=== PATIENT | female | born 1940 | race Caucasian/White ===

== ENCOUNTER 2017-03-04 00:50 | Emergency (ER) | payer OTHER ==
[2017-03-04 01:01] VITALS: BMI 23.7
--- NOTE | 2017-03-04 01:09 | DR.GENAD ---
HPI - PCP Primary Care Physician: HAZEL - Complaint/Symptoms Chief Complaint:: FEELS LIKE HEART IS RUNNING FAST Self Treatment fo Chief Complaint: NONE - Nurses notes reviewed Nurses Notes Review: Yes - Source History Provided: Patient - Mode of Arrival Mode of Arrival: Ambulatory - Timing Onset of Chief Complaint: 03/04/17 Came on: Suddenly - Duration Duration: Constant How lon Duration: Hours - Location Location: chest - Severity Severity: Moderate - Modifying Factors Worsens:: unknown - Associated Signs and Symptoms Associated Signs and Symptoms: tachycardia PMH - PMH Past Medical History: Yes Past Medical History: Arthritis, Hypertension Past Surgical History: Yes Surgical History: Appendectomy, Cholecystectomy, Hysterectomy Past Surgical History Comment: KNEE LEFT, HERNIA REPAIR, ADHESION REMOVAL, KIDNEY - Family History History of Family Medical Conditions: Yes - Social History Does patient currently use any type of tobacco product: No Have you used tobacco products in the last 12 months: No Type of Tobacco Use: None Does any household member use tobacco: No Alcohol Use: None Do you use any recreational Drugs:: No Lives With: Family Lives Where: Home - infectious screening In the last 2 months have you had wt loss of >10#?: NO Have you had fever, night sweats or hemotysis?: No Have you traveled outside the country in the last 6 months?: No Isolation: Standard ROS - Review of Systems Constitutional: No Symptoms Reported Eyes: No Symptoms Reported ENTM: No Symptoms Reported Respiratoy: No Symptoms Reported Cardiovascular: Palpitations Gastrointestinal/Abdominal: No Symptoms Reported Genitourinary: No Symptoms Reported Neurological: No Symptoms Reported Musculoskeletal: No Symptoms Reported Integumentary: No Symptoms Reported Hematologic/Lymphatic: No Symptoms Reported Endocrine: No Symptoms Reported Psychiatric: No Symptoms Reported PE - Vital Signs Vitals: Temperature 97.4 F Pulse Rate [Right Brachial] 82 Pulse Rate 110 Respiratory Rate 16 Blood Pressure [Right Arm] 165/74 Blood Pressure 189/69 O2 Sat by Pulse Oximetry 98 - General Limitations: No Limitations General Appearance: Alert, In No Apparent Distress - Head Head Exam: Normal Inspection - Eyes Eye exam: Normal Appearance, EOMI. negative: Scleral Icterus, Conjunctival Injection - ENT ENT Exam: Normal Exam, Normal Oropharynx External Ear Exam: Normal External Inspection Nose Exam: Normal Nose Exam - Neck Neck Exam: Normal Inspection, Full ROM, Trachea Midline - Chest Chest Inspection: Normal Inspection - Respiratory Respiratory Exam: Normal Lung Sounds Bilat. negative: Accessory Muscle Use, Respiratory Distress Respiratory Exam: Bilateral Clear to Auscultation - Cardiovascular Cardiovascular Exam: Tachycardia - Abdominal Exam Abdominal Exam: Normal Inspection, Normal Bowel Sounds, Soft. negative: Distention, Tenderness - Extremities Extremities Exam: Normal Inspection, Full ROM - Back Back Exam: Normal Inspection - Neurologic Neurological Exam: Alert, Oriented X3, CN II-XII Intact - Psychiatric Psychiatric Exam: Anxious - Skin Skin Exam: Intact, Normal Color Course - Treatment Treatment: 0220: heart rate 80s. BP 170s, will give lopressor and IVF for Na of 147 ROR - Labs Reviewed Result Diagrams: 03/04/17 01:40 03/04/17 01:40 Laboratory: WBC 10.4 X10^3/uL (3.6-10.0) H 03/04/17 01:40 RBC 4.13 X10^6/uL (3.5-5.4) 03/04/17 01:40 Hgb 11.9 g/dL (12.0-16.0) L 03/04/17 01:40 Hct 35.8 % (36.0-47.0) L 03/04/17 01:40 MCV 86.8 fL (80.0-100.0) 03/04/17 01:40 MCH 28.9 pg (27.0-34.0) 03/04/17 01:40 MCHC 33.3 g/dL (33.0-35.0) 03/04/17 01:40 RDW 14.5 % (11.6-16.5) 03/04/17 01:40 Plt Count 254 X10^3/uL (150.0-450.0) 03/04/17 01:40 MPV 8.2 fL (7.4-11.0) 03/04/17 01:40 Neut % 65.4 % (42.0-75.0) 03/04/17 01:40 Lymph % 24.8 % (21.0-51.0) 03/04/17 01:40 [place] % 7.7 % (0.0-13.0) 03/04/17 01:40 Eos % 1.3 % (0.9-2.9) 03/04/17 01:40 Baso % 0.8 % (0.2-1.0) 03/04/17 01:40 Neut # 6.8 x10^3/uL (2.2-4.8) H 03/04/17 01:40 Lymph # 2.6 X10^3/uL (1.3-2.9) 03/04/17 01:40 [place] # 0.8 x10^3/uL (0.3-0.8) 03/04/17 01:40 Eos # 0.1 x10^3/uL (0.0-0.2) 03/04/17 01:40 Baso # 0.1 X10^3/uL (0.0-0.1) 03/04/17 01:40 Absolute Nucleated RBC 0.0 /100WBC 03/04/17 01:40 INR Target Range - 03/04/17 01:40 INR 0.99 (0.8-1.3) 03/04/17 01:40 PTT 26.9 SECONDS (22.9-36.5) 03/04/17 01:40 PTT Comment - 03/04/17 01:40 Sodium 147 mmol/L (136-145) H 03/04/17 01:40 Corrected Sodium TNP 03/04/17 01:40 Potassium 3.5 mmol/L (3.5-5.1) 03/04/17 01:40 Chloride 109 mmol/L (98-107) H 03/04/17 01:40 Carbon Dioxide 24.2 mmol/L (21-32) 03/04/17 01:40 BUN 30 mg/dL (7-18) H 03/04/17 01:40 Creatinine 1.63 mg/dL (0.55-1.02) H 03/04/17 01:40 Est GFR (MDRD) Af Amer 40 (>60) L 03/04/17 01:40 Est GFR (MDRD) Non-Af 33 (>60) L 03/04/17 01:40 Glucose 98 mg/dL (65-99) 03/04/17 01:40 Calcium 9.1 mg/dL (8.5-10.1) 03/04/17 01:40 Corrected Calcium TNP 03/04/17 01:40 Magnesium 1.9 mg/dL (1.7-2.9) 03/04/17 01:40 Total Bilirubin 0.30 mg/dL (0.2-1.0) 03/04/17 01:40 AST 19 Units/L (15-37) 03/04/17 01:40 ALT 22 Units/L (12-78) 03/04/17 01:40 Alkaline Phosphatase 57 Units/L (46-116) 03/04/17 01:40 Creatine Kinase 193 Units/L (26-192) H 03/04/17 01:40 CK-MB (CK-2) 3.6 ng/mL (0-4.0) 03/04/17 01:40 CK/CKMB % Calc 1.9 % (<4) 03/04/17 01:40 Troponin I < 0.02 ng/mL (0-1.5) 03/04/17 01:40 Total Protein 7.5 g/dL (6.4-8.2) 03/04/17 01:40 Albumin 3.9 g/dL (3.4-5.0) 03/04/17 01:40 Globulin 3.6 g/dL (2.5-4.5) 03/04/17 01:40 Albumin/Globulin Ratio 1.1 Ratio (1.1-2.1) 03/04/17 01:40 - EKG Rate: 97 [place]: LAD Rhythm: NSR Block: None Hypertrophy: None ST: Normal - Diagnosis Discharge Problem: Heart palpitations, Hypernatremia - Discharge Plan Condition: Stable - Follow ups/Referrals Follow ups/Referrals: Renny Tinajero [Primary Care Provider] - 3 days - Instructions
[2017-03-04] MEDS ORDERED: NS 500 ML IV 500 ML IV ONE ×4 (01:26→02:22)
[2017-03-04 01:45] LABS: BASOPHILS # (AUTO) 0.1 X10^3/uL (0.0-0.1); BASOPHILS % (AUTO) 0.8 % (0.2-1.0); EOSINOPHILS # (AUTO) 0.1 x10^3/uL (0.0-0.2); EOSINOPHILS % (AUTO) 1.3 % (0.9-2.9); HEMATOCRIT 35.8 % (36.0-47.0); HEMOGLOBIN 11.9 g/dL (12.0-16.0); LYMPHOCYTES # (AUTO) 2.6 X10^3/uL (1.3-2.9); LYMPHOCYTES % (AUTO) 24.8 % (21.0-51.0); MEAN CORPUSCULAR HEMOGLOBIN 28.9 pg (27.0-34.0); MEAN CORPUSCULAR HGB CONC 33.3 g/dL (33.0-35.0); MEAN CORPUSCULAR VOLUME 86.8 fL (80.0-100.0); MEAN PLATELET VOLUME 8.2 fL (7.4-11.0); MONOCYTES # (AUTO) 0.8 x10^3/uL (0.3-0.8); MONOCYTES % (AUTO) 7.7 % (0.0-13.0); NEUTROPHILS # (AUTO) 6.8 x10^3/uL (2.2-4.8); NEUTROPHILS % (AUTO) 65.4 % (42.0-75.0); PLATELET COUNT 254 X10^3/uL (150.0-450.0); RED BLOOD COUNT 4.13 X10^6/uL (3.5-5.4); RED CELL DISTRIBUTION WIDTH 14.5 % (11.6-16.5); WHITE BLOOD COUNT 10.4 X10^3/uL (3.6-10.0)
[2017-03-04 02:04] LABS: BLOOD UREA NITROGEN 30 mg/dL (7-18); CALCIUM 9.1 mg/dL (8.5-10.1); CARBON DIOXIDE 24.2 mmol/L (21-32); CHLORIDE 109 mmol/L (98-107); CREATININE 1.63 mg/dL (0.55-1.02); GLUCOSE 98 mg/dL (65-99); SODIUM 147 mmol/L (136-145); TROPONIN I < 0.02 ng/mL (0-1.5); eGFR BLACK RACES 40 (>60); eGFR NON BLACK RACES 33 (>60)
[2017-03-04 02:10] LABS: ALANINE AMINOTRANSFERASE 22 Units/L (12-78); ALBUMIN 3.9 g/dL (3.4-5.0); ALKALINE PHOSPHATASE 57 Units/L (46-116); ASPARTATE AMINO TRANSFERASE 19 Units/L (15-37); CKMB % 1.9 % (<4); CREATINE KINASE 193 Units/L (26-192); CREATINE KINASE MB 3.6 ng/mL (0-4.0); MAGNESIUM 1.9 mg/dL (1.7-2.9); TOTAL PROTEIN 7.5 g/dL (6.4-8.2)
[2017-03-04] MEDS ORDERED: LOPRESSOR INJ 5 MG AMP IVP ONE (02:19)
[2017-03-04] MEDS ORDERED: LOPRESSOR INJ 5 MG AMP ONE (02:22)
[2017-03-04 02:44] VITALS: BP 177/74
--- NOTE | 2017-03-04 02:47 | RAD ---
Chest, one view Indication: Palpitations, shortness of breath. Comparison: 09/01/2010 Findings: The cardiac silhouette is unremarkable. The lungs are mildly hypoinflated, but essentially clear, without focal infiltrates or large effusion. The bony thorax is unremarkable. Impression: No acute cardiopulmonary disease. Reported By:
== END 2017-03-04 03:10 | disposition home or self-care (01) ==
LOC: ER 00:50
DX: R00.2 Palpitations (principal); E87.0 Hyperosmolality and hypernatremia
CPT/HCPCS: 36415; 71010; 80053; 82550; 82553; 83735; 84484; 85025; 85610; 85730; 93005; 96365; 96374; 99283; A4222; J3490

== ENCOUNTER → 2017-03-24 | Outpatient (CLI) | payer OTHER ==
[2017-03-04 02:44] VITALS: BP 177/74
--- NOTE | 2017-03-24 12:01 | CT ---
HISTORY: Chronic renal disease Study: CT abdomen without contrast Comparison: None Technique: Axial non contrast images with coronal and sagittal reformats Findings: The lung bases are clear. The liver, spleen, adrenal glands, and pancreas are within normal limits t o the limitations of an unenhanced examination. The patient is status post cholecystectomy. 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 The right kidney is diminuti ve measuring only 4.1 centimeters in length. There is a tiny nonobstructing upper pole calculus pres ent. There is an 8.5 millimeter mass projecting off the lateral aspect of this diminutive kidney lik yassine a cyst however confirmation with sonography is recommended. The left kidney is unobstructed and without stones. No significant intraperitoneal or retroperitoneal lymphadenopathy is identified. Ed cific atherosclerotic change is present in a nondilated abdominal aorta. IMPRESSION: Diminutive right kidney demonstrating cortical thinning, tiny right upper pole calculi com and a 8.5 millimeter laterally projecting mass likely a cyst however this should be confirmed sonographically or with MRI Reported By:
== END ==
LOC: RAD 10:42
PROVIDERS: ATTEND Internal Medicine Nephrology
DX: N18.2 Chronic kidney disease, stage 2 (mild) (principal)
CPT/HCPCS: 74150

== ENCOUNTER → 2017-04-05 | Outpatient (CLI) | payer OTHER ==
--- NOTE | 2017-04-05 11:54 | MRI ---
MRI OF THE ABDOMEN WITHOUT IV CONTRAST Clinical indication: Right renal mass. Procedure: Multiplanar multi sequence MRI of the abdomen were obtained without the administration of intravenous contrast according to standard departmental protocol. Comparisons: None Findings: No significant iron or fat deposition in the liver or spleen. No significant ascites. Liver and spleen are normal in appearance. No focal lesions. Gallbladder absent. No gallstones. No d uctal dilatation. Pancreas demonstrates normal T1 signal. No pancreatic masses. Adrenal glands are n ormal. Right kidney is markedly atrophic and there is a tiny right cortical cyst measuring 9 mm on s eries 601, image 18. No hydronephrosis. Visualized bowel is unremarkable. No suspicious lymph nodes. There are at least 2 peritoneal nodules along the right flank with no T2 signal worse intrinsic T1 signal. These are best seen on series 701, image 16 measuring 8 mm and series 701 image 14 measuring 8 mm. Impression: 1. Atrophic right kidney with simple renal cyst. 2. At least 2 right peritoneal nodules that are nonspecific in the absence of known malignancy. Thes e are incompletely characterized in the absence of intravenous contrast. Reported By:
== END | disposition home or self-care (01) | DRG 684 ==
LOC: RAD 08:22
PROVIDERS: ATTEND Internal Medicine Nephrology
DX: N18.2 Chronic kidney disease, stage 2 (mild) (principal); N26.1 Atrophy of kidney (terminal); N28.1 Cyst of kidney, acquired
CPT/HCPCS: 74181

== ENCOUNTER → 2017-04-06 | Outpatient (CLI) | payer OTHER | LOC: RAD 14:55 | PROVIDERS: ATTEND Physician Assistant | DX: R53.83 Other fatigue (principal); R06.09 Other forms of dyspnea | CPT/HCPCS: 93306 ==

== ENCOUNTER → 2017-04-18 | Outpatient (CLI) | payer OTHER ==
[~2017-04-18] MED LIST: LEXISCAN IV ONE
== END ==
LOC: RAD 08:07
PROVIDERS: ATTEND Physician Assistant
DX: R53.83 Other fatigue (principal); R07.89 Other chest pain; R42 Dizziness and giddiness; R51 Headache
CPT/HCPCS: 78452; 93017; A4222; A9502; J2785

== ENCOUNTER 2019-06-30 12:12 | Observation (INO) ==
[2019-06-30] MEDS ORDERED: DEPO-Medrol 40 MG VIAL IM ONE ×2 (12:50→13:00)
--- NOTE | 2019-06-30 12:55 | DR.GENAD ---
HPI - PCP Primary Care Physician: javi - HPI Comment HPI Comment: Pain in the rt lateral ankle acutely worsened this morning and pain seems to be going into her calf and upper thigh to the hip; no acute injury; no prior h/o same; she's had gout in the lt ankle, but this pain is different; no fever or chills, but she has been "achy" for the past few days but denies cp/sob/abd pain/n/v/d; she took a tramadol about an hour ago without much relief. - Complaint/Symptoms Chief Complaint:: pt stated she started having body aches earlier this week, but this morning her right lower leg has been hurting more than ever. pain from her ankle to hip on the right side. - Source History Provided: Patient - Mode of Arrival Mode of Arrival: Wheelchair - Timing Onset of Chief Complaint: 06/24/19 PMH - PMH Past Medical History: Yes Past Medical History: Arthritis, Hypertension Past Medical History Comment: gout Past Surgical History: Yes Surgical History: Appendectomy, Cholecystectomy, Hysterectomy - Family History History of Family Medical Conditions: No - Social History Does patient currently use any type of tobacco product: No Have you used tobacco products in the last 12 months: No Does any household member use tobacco: No Alcohol Use: None Do you use any recreational Drugs:: No Lives With: Family Lives Where: Home - infectious screening In the last 2 months have you had wt loss of >10#?: NO Have you had fever, night sweats or hemotysis?: No Have you traveled outside the country in the last 6 months?: No Isolation: Standard ROS - Review of Systems Constitutional: No Symptoms Reported Eyes: No Symptoms Reported ENTM: No Symptoms Reported Respiratoy: No Symptoms Reported Gastrointestinal/Abdominal: No Symptoms Reported Genitourinary: No Symptoms Reported Neurological: No Symptoms Reported Musculoskeletal: See HPI Integumentary: No Symptoms Reported Hematologic/Lymphatic: No Symptoms Reported Endocrine: No Symptoms Reported Psychiatric: No Symptoms Reported PE - General Limitations: No Limitations General Appearance: Alert (appears to be in pain) - Head Head Exam: Normal Inspection, Atraumatic - Eyes Eye exam: Normal Appearance, PERRL - ENT ENT Exam: Normal Exam - Neck Neck Exam: Normal Inspection, Full ROM - Chest Chest Inspection: Normal Inspection, Symmetric Chest Wall Rise - Respiratory Respiratory Exam: Normal Lung Sounds Bilat Respiratory Exam: Bilateral Clear to Auscultation - Cardiovascular Cardiovascular Exam: Regular Rate, Normal Rhythm - Abdominal Exam Abdominal Exam: Normal Inspection, Normal Bowel Sounds, Soft - Extremities Extremities Exam: Tenderness (rt lateral ankle, rt lat malleolus tender, minimally red and swollen) - Neurologic Neurological Exam: Alert, Oriented X3, CN II-XII Intact - Psychiatric Psychiatric Exam: Normal Affect, Normal Mood - Skin Skin Exam: Warm - Vital Signs Vitals: Temperature 98.6 F Pulse Rate 73 Respiratory Rate 16 Blood Pressure [Right Arm] 177/74 Blood Pressure 112/66 O2 Sat by Pulse Oximetry 98 Course - Reevaluation 1st: Improved ROR - Labs Reviewed Result Diagrams: 06/30/19 13:00 06/30/19 13:00 - Labs Reviewed Laboratory: WBC 15.0 X10^3/uL (3.6-10.0) H 06/30/19 13:00 RBC 3.90 X10^6/uL (3.5-5.4) 06/30/19 13:00 Hgb 11.6 g/dL (12.0-16.0) L 06/30/19 13:00 Hct 35.2 % (36.0-47.0) L 06/30/19 13:00 MCV 90.2 fL (80.0-100.0) 06/30/19 13:00 MCH 29.8 pg (27.0-34.0) 06/30/19 13:00 MCHC 33.1 g/dL (33.0-35.0) 06/30/19 13:00 RDW 13.3 % (11.6-16.5) 06/30/19 13:00 Plt Count 200 X10^3/uL (150.0-450.0) 06/30/19 13:00 MPV 8.5 fL (7.4-11.0) 06/30/19 13:00 Neut % (Auto) 75.1 % (42.0-75.0) H 06/30/19 13:00 Lymph % (Auto) 16.5 % (21.0-51.0) L 06/30/19 13:00 [place] % (Auto) 7.3 % (0.0-13.0) 06/30/19 13:00 Eos % (Auto) 0.3 % (0.9-2.9) L 06/30/19 13:00 Baso % (Auto) 0.8 % (0.2-1.0) 06/30/19 13:00 Neut # (Auto) 11.3 x10^3/uL (2.2-4.8) H 06/30/19 13:00 Lymph # (Auto) 2.5 X10^3/uL (1.3-2.9) 06/30/19 13:00 [place] # (Auto) 1.1 x10^3/uL (0.3-0.8) H 06/30/19 13:00 Eos # (Auto) 0.1 x10^3/uL (0.0-0.2) 06/30/19 13:00 Baso # (Auto) 0.1 X10^3/uL (0.0-0.1) 06/30/19 13:00 Absolute Nucleated RBC 0.0 /100WBC 06/30/19 13:00 Sodium 144 mmol/L (136-145) 06/30/19 13:00 Corrected Sodium 144 mmol/L (136-145) 06/30/19 13:00 Potassium 3.6 mmol/L (3.5-5.1) 06/30/19 13:00 Chloride 104 mmol/L (98-107) 06/30/19 13:00 Carbon Dioxide 29.5 mmol/L (21-32) 06/30/19 13:00 BUN 32 mg/dL (7-18) H 06/30/19 13:00 Creatinine 1.70 mg/dL (0.55-1.02) H 06/30/19 13:00 Est GFR (MDRD) Af Amer 37 (>60) L 06/30/19 13:00 Est GFR (MDRD) Non-Af 31 (>60) L 06/30/19 13:00 Glucose 118 mg/dL (65-99) H 06/30/19 13:00 Uric Acid 12.1 mg/dL (2.6-6.0) H 06/30/19 13:00 Calcium 9.1 mg/dL (8.5-10.1) 06/30/19 13:00 Corrected Calcium TNP 06/30/19 13:00 Total Bilirubin 0.50 mg/dL (0.2-1.0) 06/30/19 13:00 AST 19 Units/L (15-37) 06/30/19 13:00 ALT 12 Units/L (12-78) 06/30/19 13:00 Alkaline Phosphatase 62 Units/L (46-116) 06/30/19 13:00 Total Protein 7.0 g/dL (6.4-8.2) 06/30/19 13:00 Albumin 3.7 g/dL (3.4-5.0) 06/30/19 13:00 Globulin 3.3 g/dL (2.5-4.5) 06/30/19 13:00 Albumin/Globulin Ratio 1.1 Ratio (1.1-2.1) 06/30/19 13:00 Opioid - Opioid Risk Tool Total: 0 Total Score Risk Category: Low Risk - Diagnosis Discharge Problem: Leukocytosis - Discharge Plan Disposition: ADMITTED INPATIENT Condition: Stable - Follow ups/Referrals Follow ups/Referrals: Renny Tinajero [Primary Care Provider] - 3 days - Instructions
[2019-06-30 13:09] LABS: BASOPHILS # (AUTO) 0.1 X10^3/uL (0.0-0.1); BASOPHILS % (AUTO) 0.8 % (0.2-1.0); EOSINOPHILS # (AUTO) 0.1 x10^3/uL (0.0-0.2); EOSINOPHILS % (AUTO) 0.3 % (0.9-2.9); HEMATOCRIT 35.2 % (36.0-47.0); HEMOGLOBIN 11.6 g/dL (12.0-16.0); LYMPHOCYTES # (AUTO) 2.5 X10^3/uL (1.3-2.9); LYMPHOCYTES % (AUTO) 16.5 % (21.0-51.0); MEAN CORPUSCULAR HEMOGLOBIN 29.8 pg (27.0-34.0); MEAN CORPUSCULAR HGB CONC 33.1 g/dL (33.0-35.0); MEAN CORPUSCULAR VOLUME 90.2 fL (80.0-100.0); MEAN PLATELET VOLUME 8.5 fL (7.4-11.0); MONOCYTES # (AUTO) 1.1 x10^3/uL (0.3-0.8); MONOCYTES % (AUTO) 7.3 % (0.0-13.0); NEUTROPHILS # (AUTO) 11.3 x10^3/uL (2.2-4.8); NEUTROPHILS % (AUTO) 75.1 % (42.0-75.0); PLATELET COUNT 200 X10^3/uL (150.0-450.0); RED CELL DISTRIBUTION WIDTH 13.3 % (11.6-16.5)
[2019-06-30 13:20] LABS: ALANINE AMINOTRANSFERASE 12 Units/L (12-78); ALBUMIN 3.7 g/dL (3.4-5.0); ALKALINE PHOSPHATASE 62 Units/L (46-116); ASPARTATE AMINO TRANSFERASE 19 Units/L (15-37); BLOOD UREA NITROGEN 32 mg/dL (7-18); CALCIUM 9.1 mg/dL (8.5-10.1); CARBON DIOXIDE 29.5 mmol/L (21-32); CHLORIDE 104 mmol/L (98-107); COR NA(FOR HYPERGLY) 144 mmol/L (136-145); SODIUM 144 mmol/L (136-145); eGFR NON BLACK RACES 31 (>60)
--- NOTE | 2019-06-30 13:43 | RAD ---
HISTORY: Right ankle pain. Study: 3 views of the right ankle. Comparison: None Findings: No acute fracture or dislocation. The ankle mortise remains well aligned. No significant soft tissue swelling or injury can be seen. IMPRESSION: 1. No acute abnormalities of the right ankle. Reported By:
--- NOTE | 2019-06-30 13:45 | VAS ---
VENOUS ULTRASOUND DOPPLER EXAMINATION OF THE BILATERAL LOWER EXTREMITIES HISTORY: Right ankle pain and injury Comparison: None TECHNIQUE: Multiple charles scale and color flow Doppler images of the deep venous system were obtained of the right and left lower extremity. FINDINGS: The deep venous system of the right and left lower extremities were evaluated from the level of the common femoral vein through the popliteal vein. Normal color flow and augmentation can be observed. In addition, normal compression is seen throughout the deep venous system. IMPRESSION: 1. Negative for DVT. Reported By:
[2019-06-30] MEDS: NS 1000 ML 1,000 ML IV SCH ×2 (14:53→23:55)
[2019-06-30] MEDS: TORADOL 15 MG VIAL IVP PRN (14:58)
[2019-06-30 16:56] VITALS: BMI 24.2
[2019-06-30] MEDS ORDERED: DILAUDID INJ IVP PRN (18:35)
[2019-06-30] MEDS ORDERED: ZOFRAN INJ 4 MG VIAL IVP PRN (19:52)
[2019-07-01 06:04] LABS: BILIRUBIN,URINE NEGATIVE (NEGATIVE); BLOOD/HEMOGLOBIN,URINE NEGATIVE (NEGATIVE); GLUCOSE, URINE NEGATIVE (NEGATIVE); KETONES,URINE NEGATIVE (NEGATIVE); LEUKOCYTE ESTERASE ,URINE NEGATIVE (NEGATIVE); NITRITES,URINE NEGATIVE (NEGATIVE); PROTEIN,URINE NEGATIVE (NEGATIVE); UROBILINOGEN,URINE NORMAL (NORMAL)
[2019-07-01 06:05] LABS: APPEARANCE,URINE CLEAR (CLEAR); COLOR,URINE YELLOW (YELLOW)
[2019-07-01 06:31] LABS: BASOPHILS % (AUTO) 0.4 % (0.2-1.0); EOSINOPHILS % (AUTO) 0.2 % (0.9-2.9); HEMATOCRIT 30.6 % (36.0-47.0); HEMOGLOBIN 10.5 g/dL (12.0-16.0); LYMPHOCYTES % (AUTO) 19.2 % (21.0-51.0); MEAN CORPUSCULAR HEMOGLOBIN 30.9 pg (27.0-34.0); MEAN CORPUSCULAR HGB CONC 34.2 g/dL (33.0-35.0); MEAN CORPUSCULAR VOLUME 90.5 fL (80.0-100.0); MONOCYTES # (AUTO) 0.9 x10^3/uL (0.3-0.8); MONOCYTES % (AUTO) 8.4 % (0.0-13.0); NEUTROPHILS # (AUTO) 7.3 x10^3/uL (2.2-4.8); NEUTROPHILS % (AUTO) 71.8 % (42.0-75.0); PLATELET COUNT 173 X10^3/uL (150.0-450.0); RED BLOOD COUNT 3.38 X10^6/uL (3.5-5.4); RED CELL DISTRIBUTION WIDTH 13.1 % (11.6-16.5); WHITE BLOOD COUNT 10.2 X10^3/uL (3.6-10.0)
[2019-07-01 06:38] LABS: ALANINE AMINOTRANSFERASE 9 Units/L (12-78); ALBUMIN 2.8 g/dL (3.4-5.0); ALKALINE PHOSPHATASE 53 Units/L (46-116); ASPARTATE AMINO TRANSFERASE 15 Units/L (15-37); BLOOD UREA NITROGEN 28 mg/dL (7-18); CALCIUM 8.3 mg/dL (8.5-10.1); CARBON DIOXIDE 27.2 mmol/L (21-32); CHLORIDE 107 mmol/L (98-107); COR CA(FOR HYPOALB) 9.3 mg/dL (8.5-10.1); CREATININE 1.52 mg/dL (0.55-1.02); SODIUM 143 mmol/L (136-145); TOTAL PROTEIN 5.7 g/dL (6.4-8.2); eGFR NON BLACK RACES 35 (>60)
[2019-07-01] MEDS: NS 1000 ML 1,000 ML IV SCH ×5 (08:00→23:35)
[2019-07-01] MEDS ORDERED: COLCRYS TAB 0.6 MG PO SCH (10:00)
[2019-07-01] MEDS: COLCRYS TAB 0.6 MG PO SCH (21:12)
[2019-07-01] MEDS: TORADOL 15 MG VIAL IVP PRN (23:35)
[2019-07-02 05:19] LABS: BASOPHILS % (AUTO) 0.4 % (0.2-1.0); EOSINOPHILS # (AUTO) 0.1 x10^3/uL (0.0-0.2); HEMOGLOBIN 9.7 g/dL (12.0-16.0); LYMPHOCYTES # (AUTO) 2.3 X10^3/uL (1.3-2.9); LYMPHOCYTES % (AUTO) 32.9 % (21.0-51.0); MEAN CORPUSCULAR HEMOGLOBIN 30.6 pg (27.0-34.0); MEAN CORPUSCULAR HGB CONC 33.6 g/dL (33.0-35.0); MEAN CORPUSCULAR VOLUME 91.1 fL (80.0-100.0); MEAN PLATELET VOLUME 8.9 fL (7.4-11.0); MONOCYTES # (AUTO) 0.5 x10^3/uL (0.3-0.8); MONOCYTES % (AUTO) 7.5 % (0.0-13.0); NEUTROPHILS % (AUTO) 58.2 % (42.0-75.0); PLATELET COUNT 157 X10^3/uL (150.0-450.0); RED BLOOD COUNT 3.19 X10^6/uL (3.5-5.4); RED CELL DISTRIBUTION WIDTH 13.4 % (11.6-16.5); WHITE BLOOD COUNT 6.9 X10^3/uL (3.6-10.0)
[2019-07-02 05:42] LABS: ALANINE AMINOTRANSFERASE 21 Units/L (12-78); ALBUMIN 2.5 g/dL (3.4-5.0); ALKALINE PHOSPHATASE 60 Units/L (46-116); ASPARTATE AMINO TRANSFERASE 28 Units/L (15-37); BLOOD UREA NITROGEN 25 mg/dL (7-18); CALCIUM 8.2 mg/dL (8.5-10.1); CARBON DIOXIDE 24.2 mmol/L (21-32); CHLORIDE 113 mmol/L (98-107); COR CA(FOR HYPOALB) 9.4 mg/dL (8.5-10.1); CREATININE 1.37 mg/dL (0.55-1.02); SODIUM 145 mmol/L (136-145); TOTAL PROTEIN 5.5 g/dL (6.4-8.2); eGFR NON BLACK RACES 40 (>60)
[2019-07-02 06:37] LABS: CREATINE KINASE 49 Units/L (26-192); CREATINE KINASE MB < 1.0 ng/mL (0-4.0); TROPONIN I < 0.02 ng/mL (0-1.5)
[2019-07-02] MEDS: TORADOL 15 MG VIAL IVP PRN (07:08)
[2019-07-02] MEDS: COLCRYS TAB 0.6 MG PO SCH (08:59)
[2019-07-02] MEDS ORDERED: PHARMACY CONSULT - DOSE _____ XX SCH (10:00)
[2019-07-02] MEDS ORDERED: TORADOL 15 MG VIAL IVP SCH (11:00)
[2019-07-02] MEDS ORDERED: ULORIC PO SCH (11:00)
[2019-07-02 12:19] LABS: CKMB % 1.8 % (<4); CREATINE KINASE 56 Units/L (26-192); CREATINE KINASE MB < 1.0 ng/mL (0-4.0); TROPONIN I < 0.02 ng/mL (0-1.5)
[2019-07-02 13:16] VITALS: BP 190/80
[2019-07-02] MEDS: NS 1000 ML 1,000 ML IV SCH (14:39)
[2019-07-03] MEDS ORDERED: LOVENOX INJ 30 MG SYR SC SCH (09:00)
== END 2019-07-02 14:50 | disposition home or self-care (01) ==
LOC: ER 12:16 → MED/SURG 13:59 → INTOOBSV 13:59 → MED/SURG 15:35
PROVIDERS: ADMIT Internal Medicine; ATTEND Internal Medicine
DX: M10.071 Idiopathic gout, right ankle and foot; R79.82 Elevated C-reactive protein (CRP); M13.89 Other specified arthritis, multiple sites; N17.9 Acute kidney failure, unspecified; N39.0 Urinary tract infection, site not specified; E86.0 Dehydration; R53.83 Other fatigue; I10 Essential (primary) hypertension; D72.828 Other elevated white blood cell count
CPT/HCPCS: 36415; 73610; 80053; 81003; 82550; 82553; 84484; 84550; 85025; 86140; 93005; 93970; 96365; 96367; 96374; 99284; A4222; G0378; J1030; J1170; J1885; J2405; J7030

== ENCOUNTER 2019-07-13 11:15 | Inpatient (IN) ==
[2019-07-13] MEDS ORDERED: XYLOCAINE 1 % (PLAIN) ONE (13:50)
--- NOTE | 2019-07-13 14:30 | RAD ---
HISTORY: Central line placement Study: Single-view chest Comparison: 03/04/2017. Findings: Right-sided subclavian line is present with the tip in the lower right atrium. No pneumothorax is seen. Trachea is midline. Heart size is upper normal. Lungs and pleural spaces are clear. Osseous structures are intact. IMPRESSION: Right-sided subclavian line present with the tip in the lower right atrium. No pneumothorax is seen. No acute cardiopulmonary disease. Reported By:
[2019-07-13 15:11] VITALS: BMI 22.2
[2019-07-13] MEDS ORDERED: NS 1000 ML 1,000 ML IV ONE ×2 (15:28→16:35)
[2019-07-13 16:02] LABS: BASOPHILS % (AUTO) 0.3 % (0.2-1.0); EOSINOPHILS # (AUTO) 0.1 x10^3/uL (0.0-0.2); EOSINOPHILS % (AUTO) 0.5 % (0.9-2.9); HEMATOCRIT 36.5 % (36.0-47.0); HEMOGLOBIN 12.4 g/dL (12.0-16.0); LYMPHOCYTES % (AUTO) 16.9 % (21.0-51.0); MEAN CORPUSCULAR HEMOGLOBIN 30.3 pg (27.0-34.0); MEAN CORPUSCULAR HGB CONC 33.8 g/dL (33.0-35.0); MEAN CORPUSCULAR VOLUME 89.6 fL (80.0-100.0); MEAN PLATELET VOLUME 8.8 fL (7.4-11.0); MONOCYTES % (AUTO) 8.3 % (0.0-13.0); NEUTROPHILS # (AUTO) 8.9 x10^3/uL (2.2-4.8); PLATELET COUNT 234 X10^3/uL (150.0-450.0); RED BLOOD COUNT 4.08 X10^6/uL (3.5-5.4); RED CELL DISTRIBUTION WIDTH 13.9 % (11.6-16.5)
[2019-07-13 16:12] LABS: ALANINE AMINOTRANSFERASE 28 Units/L (12-78); ALBUMIN 3.4 g/dL (3.4-5.0); ALKALINE PHOSPHATASE 98 Units/L (46-116); ASPARTATE AMINO TRANSFERASE 33 Units/L (15-37); BLOOD UREA NITROGEN 58 mg/dL (7-18); CALCIUM 8.9 mg/dL (8.5-10.1); CARBON DIOXIDE 25.2 mmol/L (21-32); CHLORIDE 105 mmol/L (98-107); COR NA(FOR HYPERGLY) 139 mmol/L (136-145); CREATININE 3.59 mg/dL (0.55-1.02); SODIUM 139 mmol/L (136-145); TOTAL PROTEIN 6.5 g/dL (6.4-8.2); eGFR NON BLACK RACES 13 (>60)
[2019-07-14 00:36] LABS: BILIRUBIN,URINE NEGATIVE (NEGATIVE); BLOOD/HEMOGLOBIN,URINE 2+ (NEGATIVE); GLUCOSE, URINE NEGATIVE (NEGATIVE); KETONES,URINE NEGATIVE (NEGATIVE); LEUKOCYTE ESTERASE ,URINE 1+ (NEGATIVE); NITRITES,URINE NEGATIVE (NEGATIVE); PROTEIN,URINE NEGATIVE (NEGATIVE); UROBILINOGEN,URINE NORMAL (NORMAL)
[2019-07-14 01:11] LABS: APPEARANCE,URINE CLEAR (CLEAR); BACTERIA,URINE TRACE /HPF (NEGATIVE); COLOR,URINE YELLOW (YELLOW); SQUAMOUS EPITHELIAL CELL,UR FEW /HPF (NEGATIVE)
[2019-07-14 05:17] LABS: BASOPHILS % (AUTO) 0.4 % (0.2-1.0); EOSINOPHILS # (AUTO) 0.1 x10^3/uL (0.0-0.2); EOSINOPHILS % (AUTO) 0.6 % (0.9-2.9); HEMATOCRIT 30.2 % (36.0-47.0); HEMOGLOBIN 10.4 g/dL (12.0-16.0); LYMPHOCYTES # (AUTO) 1.5 X10^3/uL (1.3-2.9); LYMPHOCYTES % (AUTO) 17.6 % (21.0-51.0); MEAN CORPUSCULAR HEMOGLOBIN 30.5 pg (27.0-34.0); MEAN CORPUSCULAR HGB CONC 34.4 g/dL (33.0-35.0); MEAN CORPUSCULAR VOLUME 88.8 fL (80.0-100.0); MEAN PLATELET VOLUME 8.7 fL (7.4-11.0); MONOCYTES # (AUTO) 0.6 x10^3/uL (0.3-0.8); MONOCYTES % (AUTO) 6.9 % (0.0-13.0); NEUTROPHILS # (AUTO) 6.2 x10^3/uL (2.2-4.8); NEUTROPHILS % (AUTO) 74.5 % (42.0-75.0); PLATELET COUNT 168 X10^3/uL (150.0-450.0); RED CELL DISTRIBUTION WIDTH 13.4 % (11.6-16.5); WHITE BLOOD COUNT 8.4 X10^3/uL (3.6-10.0)
[2019-07-14] MEDS: NS 1000 ML 1,000 ML IV SCH ×4 (05:20→18:33)
[2019-07-14 05:21] LABS: ALANINE AMINOTRANSFERASE 23 Units/L (12-78); ALBUMIN 2.8 g/dL (3.4-5.0); ALKALINE PHOSPHATASE 79 Units/L (46-116); ASPARTATE AMINO TRANSFERASE 30 Units/L (15-37); BLOOD UREA NITROGEN 43 mg/dL (7-18); CARBON DIOXIDE 20.3 mmol/L (21-32); CHLORIDE 109 mmol/L (98-107); CREATININE 2.45 mg/dL (0.55-1.02); MAGNESIUM 1.2 mg/dL (1.7-2.9); SODIUM 141 mmol/L (136-145); TOTAL PROTEIN 5.4 g/dL (6.4-8.2); eGFR NON BLACK RACES 20 (>60)
[2019-07-14] MEDS ORDERED: PHARMACY CONSULT - DOSE _____ XX SCH (10:00)
[2019-07-14] MEDS: RIFADIN CAP 300 MG PO SCH ×2 (11:20→20:21)
[2019-07-14] MEDS: ASPIRIN EC 81 MG PO SCH (11:20)
[2019-07-14] MEDS: CIPRO IV 400 MG PREMIX* 400 MG/200 ML IV.SOLN. IV SCH (11:22)
[2019-07-14] MEDS: K-DUR TAB 20 MEQ PO SCH (13:00)
[2019-07-14] MEDS: MAGNESIUM SULFATE 1 GRAM/100 mL PREMIX 1 GM/100 ML BAG IV PRN ×4 (14:35→18:21)
[2019-07-14] MEDS: SYNTHROID 25 mcg TAB PO SCH (15:57)
[2019-07-14] MEDS ORDERED: ULTRAM PO PRN (20:02)
[2019-07-14] MEDS: CRESTOR TAB 10 MG PO SCH (20:20)
[2019-07-15] MEDS: NS 1000 ML 1,000 ML IV SCH ×3 (01:45→14:00)
[2019-07-15 05:30] LABS: BASOPHILS % (AUTO) 0.4 % (0.2-1.0); EOSINOPHILS % (AUTO) 0.5 % (0.9-2.9); HEMATOCRIT 29.5 % (36.0-47.0); HEMOGLOBIN 10.1 g/dL (12.0-16.0); LYMPHOCYTES # (AUTO) 1.5 X10^3/uL (1.3-2.9); LYMPHOCYTES % (AUTO) 21.9 % (21.0-51.0); MEAN CORPUSCULAR HEMOGLOBIN 30.6 pg (27.0-34.0); MEAN CORPUSCULAR HGB CONC 34.3 g/dL (33.0-35.0); MEAN CORPUSCULAR VOLUME 89.4 fL (80.0-100.0); MEAN PLATELET VOLUME 9.1 fL (7.4-11.0); MONOCYTES # (AUTO) 0.5 x10^3/uL (0.3-0.8); MONOCYTES % (AUTO) 7.9 % (0.0-13.0); NEUTROPHILS # (AUTO) 4.8 x10^3/uL (2.2-4.8); NEUTROPHILS % (AUTO) 69.3 % (42.0-75.0); PLATELET COUNT 148 X10^3/uL (150.0-450.0); RED CELL DISTRIBUTION WIDTH 13.6 % (11.6-16.5); WHITE BLOOD COUNT 6.9 X10^3/uL (3.6-10.0)
[2019-07-15 05:45] LABS: ALBUMIN 2.8 g/dL (3.4-5.0); CALCIUM 8.3 mg/dL (8.5-10.1); CARBON DIOXIDE 21.4 mmol/L (21-32); COR CA(FOR HYPOALB) 9.3 mg/dL (8.5-10.1); CREATININE 1.58 mg/dL (0.55-1.02); MAGNESIUM 2.5 mg/dL (1.7-2.9); TOTAL PROTEIN 5.4 g/dL (6.4-8.2)
--- NOTE | 2019-07-15 05:58 | RAD ---
Chest, one view Indication: Renal insufficiency Comparison: 07/13/2019 Findings: Heart is stable in size. There is a new small left pleural effusion and left basilar opacities. Left upper lung and right lung are clear. Right subclavian CVL terminates over the right atrium without pneumothorax. Impression: New small left pleural effusion and left basilar opacities, either representing atelectasis or pneumonia. Reported By:
[2019-07-15] MEDS: RIFADIN CAP 300 MG PO SCH ×2 (07:00→20:35)
[2019-07-15] MEDS: K-DUR TAB 20 MEQ PO SCH (09:14)
[2019-07-15] MEDS: CIPRO IV 400 MG PREMIX* 400 MG/200 ML IV.SOLN. IV SCH (09:14)
[2019-07-15] MEDS: ASPIRIN EC 81 MG PO SCH (09:15)
[2019-07-15] MEDS ORDERED: SALINE 3% 15 ML NEB TX NEB ONE (10:15)
[2019-07-15] MEDS: XOPENEX 1.25 MG/3 ML NEBULE NEB SCH ×3 (12:33→20:17)
[2019-07-15] MEDS: SYNTHROID 25 mcg TAB PO SCH (17:05)
[2019-07-15] MEDS: CRESTOR TAB 10 MG PO SCH (20:35)
[2019-07-16] MEDS: NS 1000 ML 1,000 ML IV SCH (01:05)
[2019-07-16] MEDS: XOPENEX 1.25 MG/3 ML NEBULE NEB SCH (05:12)
[2019-07-16 05:17] LABS: BASOPHILS % (AUTO) 0.3 % (0.2-1.0); EOSINOPHILS # (AUTO) 0.1 x10^3/uL (0.0-0.2); EOSINOPHILS % (AUTO) 0.6 % (0.9-2.9); HEMATOCRIT 27.5 % (36.0-47.0); HEMOGLOBIN 9.4 g/dL (12.0-16.0); LYMPHOCYTES # (AUTO) 1.6 X10^3/uL (1.3-2.9); LYMPHOCYTES % (AUTO) 19.2 % (21.0-51.0); MEAN CORPUSCULAR HEMOGLOBIN 30.8 pg (27.0-34.0); MEAN CORPUSCULAR HGB CONC 34.3 g/dL (33.0-35.0); MEAN CORPUSCULAR VOLUME 89.9 fL (80.0-100.0); MEAN PLATELET VOLUME 9.7 fL (7.4-11.0); MONOCYTES # (AUTO) 0.7 x10^3/uL (0.3-0.8); MONOCYTES % (AUTO) 8.5 % (0.0-13.0); NEUTROPHILS % (AUTO) 71.4 % (42.0-75.0); PLATELET COUNT 140 X10^3/uL (150.0-450.0); RED BLOOD COUNT 3.06 X10^6/uL (3.5-5.4); RED CELL DISTRIBUTION WIDTH 13.6 % (11.6-16.5); WHITE BLOOD COUNT 8.4 X10^3/uL (3.6-10.0)
[2019-07-16 05:33] LABS: ALBUMIN 2.7 g/dL (3.4-5.0); CALCIUM 8.3 mg/dL (8.5-10.1); CARBON DIOXIDE 21.4 mmol/L (21-32); COR CA(FOR HYPOALB) 9.3 mg/dL (8.5-10.1); CREATININE 1.51 mg/dL (0.55-1.02); TOTAL PROTEIN 5.3 g/dL (6.4-8.2)
--- NOTE | 2019-07-16 07:00 | RAD ---
HISTORY: Renal insufficiency Study: Chest PA and lateral Comparison: 07/15/2019 Findings: The heart is within normal limits in size. The brandy are normal. The right lung and left upper lung coronado are clear. There is improvement in the left lower lobe infiltrate being followed. Left pleural effusion is unchanged. The bony thorax is unremarkable. IMPRESSION: Improving left basilar lung infiltrate No change left pleural effusion Reported By:
[2019-07-16] MEDS: K-DUR TAB 20 MEQ PO SCH (08:19)
[2019-07-16] MEDS: ASPIRIN EC 81 MG PO SCH (08:19)
[2019-07-16] MEDS: CIPRO IV 400 MG PREMIX* 400 MG/200 ML IV.SOLN. IV SCH (08:19)
[2019-07-16] MEDS: RIFADIN CAP 300 MG PO SCH ×2 (08:19→10:30)
[2019-07-16] MEDS ORDERED: PHARMACY CONSULT - DOSE _____ XX SCH (10:00)
[2019-07-16 15:37] VITALS: BP 192/73
== END 2019-07-16 13:20 | disposition home or self-care (01) | DRG 684 ==
LOC: MED/SURG → OBSVTOIN 11:52
PROVIDERS: ADMIT Internal Medicine; ATTEND Internal Medicine
DX: M65.9 Synovitis and tenosynovitis, unspecified; E11.65 Type 2 diabetes mellitus with hyperglycemia; I87.2 Venous insufficiency (chronic) (peripheral); N18.3 Chronic kidney disease, stage 3 (moderate); N17.8 Other acute kidney failure; I12.9 Hypertensive chronic kidney disease with stage 1 through stage 4 chronic kidney disease, or unspecified chronic kidney disease; E86.0 Dehydration; M10.9 Gout, unspecified
CPT/HCPCS: 36415; 36556; 71010; 71020; 71045; 71046; 80053; 81001; 82270; 83630; 83735; 85025; 87045; 87070; 87205; 87427; 87449; 87493; 87899; 94640; 94760; A4222; G0378; J0744; J3475; J7030

== ENCOUNTER 2023-12-19 14:59 | Observation (INO) ==
[2023-12-19 18:20] LABS: EOSINOPHILS % (AUTO) 0.1 % (0.9-2.9); HEMATOCRIT 34.6 % (36.0-47.0)
--- NOTE | 2023-12-19 18:23 | PCM.PROG ---
Progress Note - Past Medical Family Social History Allergies: Allergies acetaminophen [From Percocet] Allergy (Verified 12/19/23 16:55) hydrocodone [From Lorcet (hydrocodone)] Allergy (Verified 12/19/23 16:55) oxycodone [From Percocet] Allergy (Verified 12/19/23 16:55) Sulfa (Sulfonamide Antibiotics) [SULFA] Allergy (Verified 12/19/23 16:55) - Physical Exam Speech Pattern: Clear - Laboratory and Diagnostics Result Diagrams: 12/19/23 17:56 12/19/23 17:56 Procedures (ALL) - Central Line Placement PCM.CLCO: written consent Time out performed: Yes Patient placed pm monitor/pulse ox: Yes (vss) MD prep: mask, gown, gloves, other (msbt) Centrial line prep: chlorhexidine scrub Local anesthsia used: lidocane 1% Ultrasound used for placement: Yes (good visual) Central line lumen ininserted: triple (with pressure injector ports) Post procedure: sutured in place, good blood return, all ports aspirated, flushed,capped, sterile dressing applied (biopatch applied) Post procedure xray: tip oc catheter in good position, no pneumothorax seen Patient tolerated procedure: Yes (x1 attempt) Complications: none (Right IJ)
[2023-12-19 18:24] LABS: LYMPHOCYTES # (AUTO) 0.9 X10^3/uL (1.3-2.9); MEAN CORPUSCULAR HEMOGLOBIN 30.6 pg (27.0-34.0); MEAN CORPUSCULAR HGB CONC 32.8 g/dL (33.0-35.0); PLATELET COUNT 150 X10^3/uL (150.0-450.0)
[2023-12-19 18:27] LABS: ALANINE AMINOTRANSFERASE 29 Units/L (12-78); ALBUMIN 2.5 g/dL (3.4-5.0); ALKALINE PHOSPHATASE 60 Units/L (46-116); ASPARTATE AMINO TRANSFERASE 19 Units/L (15-37); BASOPHILS # (AUTO) 0.1 X10^3/uL (0.0-0.1); BASOPHILS % (AUTO) 0.4 % (0.2-1.0); BLOOD UREA NITROGEN 63 mg/dL (7-18); CALCIUM 8.5 mg/dL (8.5-10.1); CHLORIDE 103 mmol/L (98-107); COR CA(FOR HYPOALB) 9.7 mg/dL (8.5-10.1); CREATININE 1.59 mg/dL (0.55-1.02); GLUCOSE 90 mg/dL (65-99); HEMOGLOBIN 11.3 g/dL (12.0-16.0); LYMPHOCYTES % (AUTO) 7.8 % (21.0-51.0); MEAN CORPUSCULAR VOLUME 93.4 fL (80.0-100.0); MEAN PLATELET VOLUME 8.5 fL (7.4-11.0); MONOCYTES # (AUTO) 0.6 x10^3/uL (0.3-0.8); NEUTROPHILS # (AUTO) 10.5 x10^3/uL (2.2-4.8); NEUTROPHILS % (AUTO) 86.7 % (42.0-75.0); POTASSIUM 3.1 mmol/L (3.5-5.1); RED CELL DISTRIBUTION WIDTH 17.2 % (11.6-16.5); SODIUM 137 mmol/L (136-145); TOTAL PROTEIN 5.4 g/dL (6.4-8.2); WHITE BLOOD COUNT 12.1 X10^3/uL (3.6-10.0); eGFR NON BLACK RACES 33 (>60)
[2023-12-19 20:40] LABS: BILIRUBIN,URINE NEGATIVE (NEGATIVE); BLOOD/HEMOGLOBIN,URINE NEGATIVE (NEGATIVE); GLUCOSE, URINE NEGATIVE (NEGATIVE); KETONES,URINE NEGATIVE (NEGATIVE); LEUKOCYTE ESTERASE ,URINE 3+ (NEGATIVE); NITRITES,URINE NEGATIVE (NEGATIVE); PROTEIN,URINE NEGATIVE (NEGATIVE); UROBILINOGEN,URINE NORMAL (NORMAL)
[2023-12-19 20:56] LABS: APPEARANCE,URINE CLEAR (CLEAR); BACTERIA,URINE 2+ /HPF (NEGATIVE); COLOR,URINE YELLOW (YELLOW); RBC,URINE 0-2 /HPF (0-3); SQUAMOUS EPITHELIAL CELL,UR MODERATE /HPF (NEGATIVE)
[2023-12-19] MEDS: K-DUR TAB 20 MEQ PO SCH (21:00)
[2023-12-19] MEDS: MAG-OX TAB PO SCH (21:01)
[2023-12-19] MEDS: NS 1,000 ML IV 1,000 ML IV SCH (21:01)
[2023-12-19] MEDS: CONSULT PHARMACY - POTASSIUM & MAGNESIUM XX SCH (21:31)
[2023-12-19] MEDS ORDERED: ROCEPHIN VIAL 1 GRAM 1 G in NS 100 ML IV 100 ML IV SCH (21:35)
[2023-12-19] MEDS: ROCEPHIN VIAL 1 GRAM 1 G in NS 100 ML IV 100 ML IV SCH (22:21)
[2023-12-20 05:27] LABS: BASOPHILS # (AUTO) 0.1 X10^3/uL (0.0-0.1); BASOPHILS % (AUTO) 1.6 % (0.2-1.0); EOSINOPHILS # (AUTO) 0.1 x10^3/uL (0.0-0.2); EOSINOPHILS % (AUTO) 1.3 % (0.9-2.9); HEMATOCRIT 30.3 % (36.0-47.0); HEMOGLOBIN 10.1 g/dL (12.0-16.0); LYMPHOCYTES # (AUTO) 0.6 X10^3/uL (1.3-2.9); LYMPHOCYTES % (AUTO) 6.8 % (21.0-51.0); MEAN CORPUSCULAR HEMOGLOBIN 31.1 pg (27.0-34.0); MEAN CORPUSCULAR HGB CONC 33.2 g/dL (33.0-35.0); MEAN CORPUSCULAR VOLUME 93.6 fL (80.0-100.0); MEAN PLATELET VOLUME 8.7 fL (7.4-11.0); MONOCYTES # (AUTO) 0.5 x10^3/uL (0.3-0.8); MONOCYTES % (AUTO) 5.2 % (0.0-13.0); NEUTROPHILS # (AUTO) 7.6 x10^3/uL (2.2-4.8); NEUTROPHILS % (AUTO) 85.1 % (42.0-75.0); PLATELET COUNT 138 X10^3/uL (150.0-450.0); RED BLOOD COUNT 3.23 X10^6/uL (3.5-5.4); RED CELL DISTRIBUTION WIDTH 17.1 % (11.6-16.5)
[2023-12-20] MEDS: SYNTHROID 50 mcg TAB PO SCH (05:32)
[2023-12-20 05:45] LABS: ALBUMIN 2.1 g/dL (3.4-5.0); CALCIUM 8.2 mg/dL (8.5-10.1); CARBON DIOXIDE 25.5 mmol/L (21-32); COR CA(FOR HYPOALB) 9.7 mg/dL (8.5-10.1); CREATININE 1.51 mg/dL (0.55-1.02); POTASSIUM 3.8 mmol/L (3.5-5.1); TOTAL PROTEIN 4.7 g/dL (6.4-8.2)
--- NOTE | 2023-12-20 06:39 | RAD ---
EXAM: CHEST, 1 VIEW HISTORY: S/P CENTRAL LINE PLACEMENT; COMPARISON: 09/02/2021 CXR TECHNIQUE: AP chest 2 images. FINDINGS: Right IJ central line with tip in the mid to upper SVC. The cardiac and mediastinal contours are nor mal in size. Opacity in the left peripheral lung base with blunted left costophrenic sulcus. The ri ght lung appears clear. Can not exclude a small left pleural effusion. No discernible pneumothorax. IMPRESSION: Opacity in the left peripheral lung base may represent pleural effusion, atelectasis, and/or infiltra te. Right IJ central line in decent position. THIS IS AN ELECTRONICALLY VERIFIED FINAL REPORT 12/20/2023 6:36 AM - Electronically signed by Sj Swenson MD
[2023-12-20] MEDS: APRESOLINE TAB 10 MG PO SCH (08:49)
[2023-12-20] MEDS: COZAAR PO SCH (08:50)
[2023-12-20] MEDS: PROTONIX TAB 40 MG PO SCH (08:50)
[2023-12-20] MEDS: MICRO K EXTEN CAP 10 MEQ PO SCH (08:50)
[2023-12-20] MEDS: LOVENOX INJ 30 MG SYR SC SCH (08:50)
[2023-12-20] MEDS ORDERED: SYNTHROID 25 mcg TAB PO SCH (09:00)
[2023-12-20] MEDS: CONSULT PHARMACY - POTASSIUM & MAGNESIUM XX SCH (09:00)
[2023-12-20] MEDS ORDERED: CONSULT PHARMACY - POTASSIUM & MAGNESIUM XX SCH (09:00)
[2023-12-20] MEDS: MAG-OX TAB PO SCH (09:27)
[2023-12-20] MEDS: CRESTOR TAB 10 MG PO SCH (20:17)
[2023-12-20] MEDS ORDERED: ROSUVASTATIN 5 MG PO SCH (21:00)
[2023-12-21] MEDS: TYLENOL 325 MG TAB PO PRN (02:11)
[2023-12-21 05:29] LABS: BASOPHILS % (AUTO) 0.2 % (0.2-1.0); EOSINOPHILS % (AUTO) 0.2 % (0.9-2.9); HEMATOCRIT 27.3 % (36.0-47.0); LYMPHOCYTES # (AUTO) 0.9 X10^3/uL (1.3-2.9); LYMPHOCYTES % (AUTO) 10.1 % (21.0-51.0); MEAN CORPUSCULAR HEMOGLOBIN 31.3 pg (27.0-34.0); MEAN CORPUSCULAR HGB CONC 33.1 g/dL (33.0-35.0); MEAN CORPUSCULAR VOLUME 94.7 fL (80.0-100.0); MEAN PLATELET VOLUME 8.5 fL (7.4-11.0); MONOCYTES # (AUTO) 0.5 x10^3/uL (0.3-0.8); MONOCYTES % (AUTO) 5.6 % (0.0-13.0); NEUTROPHILS # (AUTO) 7.1 x10^3/uL (2.2-4.8); NEUTROPHILS % (AUTO) 83.9 % (42.0-75.0); PLATELET COUNT 115 X10^3/uL (150.0-450.0); RED BLOOD COUNT 2.88 X10^6/uL (3.5-5.4); RED CELL DISTRIBUTION WIDTH 17.4 % (11.6-16.5); WHITE BLOOD COUNT 8.5 X10^3/uL (3.6-10.0)
[2023-12-21 05:37] LABS: ALBUMIN 1.8 g/dL (3.4-5.0); CALCIUM 7.6 mg/dL (8.5-10.1); CARBON DIOXIDE 22.3 mmol/L (21-32); COR CA(FOR HYPOALB) 9.4 mg/dL (8.5-10.1); CREATININE 1.21 mg/dL (0.55-1.02); MAGNESIUM 1.8 mg/dL (2.0-2.9); POTASSIUM 4.2 mmol/L (3.5-5.1); TOTAL PROTEIN 4.2 g/dL (6.4-8.2)
[2023-12-21 06:09] LABS: METAMYELOCYTES % 3; MYELOCYTES % 1
[2023-12-21 06:10] LABS: PLATELET MORPHOLOGY COMMENT NORMAL (NORMAL)
[2023-12-21] MEDS ORDERED: PHARMACY CONSULT - TPN XX SCH (11:00)
[2023-12-21] MEDS: [UNRECOGNIZED DRUG - OTHER] IV SCH (11:30)
[2023-12-21] MEDS: ALBUMIN HUMAN 25%- 100 ML 100 ML IV SCH (11:30)
[2023-12-21] MEDS: MVI IV SCH (11:30)
[2023-12-21] MEDS: DRUG FILTER EXTENSION SET ONE (11:30)
[2023-12-21] MEDS: CLINIMIX IV SCH (11:30)
--- NOTE | 2023-12-21 12:01 | DR.UPDATE ---
H&P Update Prescription drug monitoring program results: PDMP reviewed and no concerns identified H&P Reviewed: Yes Any changes to H&P?: Yes Changes noted:: IS A 82 YEAR OLD PATIENT OF OURS. SHE WAS A DIRECT ADMISSION TO THE OFFICE, OBSERVATION STATUS, FOR FURTHER EVALUATION AND TREATMENT OF DEHYDRATION, ACUTE KIDNEY INJURY, AND GENERALIZED WEAKNESS. PATIENT REPORTS THAT WEAKNESS STARTED A FEW WEEKS AGO AND HAS PROGRESSIVELY GOTTEN WORSE. SHE HAS HAD DECREASED ORAL INTAKE AND HAS BEEN UNABLE TO GET OUT OF BED WITHOUT MODERATE ASSISTANCE FOR THE PAST 2 DAYS. HER MEDICAL HX INCLUDES: HTN, GERD, CHRONIC DIARRHEA, HYSTERECTOMY, GOUT, LUMBAR DDD, APPENDECTOMY, HYSTERECTOMY, JOINT REPLACEMENT, ORTHO, HEART ABLATION, HERNIA REPAIR, RENAL ANEURYSMECTOMY, RIGHT KNEE REPLACEMENT. ON ADMISSION, HER VITALS WERE: 98.0-78-18-94%-130/60. LABS WERE OBTAINED. WBC 12.1, RBC 3.70, HGB 11.3, HCT 34.6, PLT COUNT 150, SODIUM 137, POTASSIUM 3.1, CHLORIDE 103, BUN 63, CREATININE 1.59, GLUCOSE 90, MAGNESIUM 1.7, TOTAL BILI 0.50, AST 19, ALT 29, ALK PHOS 60, TOTAL PROTEIN 5.4, ALBUMIN 2.5. A URINALYSIS WAS OBTAINED AND REVEALED: WBC 30- 50, RBC 0-2, LEUKOCYTES 3+, BACTERIA 2+. A URINE CULTURE WAS SET UP. A CENTRAL LINE WAS INSERTED AND A CHEST XRAY WAS OBTAINED AND REVEALED: Right IJ central line with tip in the mid to upper SVC. The cardiac and mediastinal contours are normal in size. Opacity in the left peripheral lung base with blunted left costophrenic sulcus. The right lung appears clear. Can not exclude a small left pleural effusion. No discernible pneumothorax. SHE WAS STARTED ON NORMAL SALINE AT 75 ML/HR, ROCEPHIN 1G IV DAILY, LOVENOX 30MG SC DAILY. HER HOME MEDICATIONS OF HYDRALAZINE, COZAAR, PROTONIX, AND CRESTOR WERE RESUMED. WE WILL HAVE PHYSICAL THERAPY WORK WITH HER. OTHERWISE, WE WILL FOLLOW-UP WITH AM LABS AND CONTINUE TO MONITOR. TIME SPENT ON CLINICAL ASSESSMENT, REVIEWING LABS AND IMAGING, DECISION MAKING, AND DOCUMENTATION GREATER THAN 75 MINUTES. Patient was examined?: Yes Vital Signs: Temp Pulse Pulse Resp BP BP Pulse Ox 12/21/23 08:45 12/21/23 08:26 12/21/23 08:00 98 F 81 20 159/71 94 L 12/21/23 04:00 99.7 F H 20 L 20 146/63 97 12/21/23 03:11 18 12/21/23 02:11 18 12/20/23 23:28 98.7 F 73 20 140/66 98 12/20/23 20:00 103 H 99 12/20/23 20:00 12/20/23 19:46 98.0 F 104 H 20 145/65 98 12/20/23 19:00 12/20/23 16:00 98.5 F 76 20 136/61 99 12/20/23 12:00 98.0 F 72 20 151/65 100 12/20/23 08:00 98.0 F 76 20 141/65 97 12/20/23 07:30 12/20/23 07:55 12/20/23 04:00 97.9 F 89 20 168/69 98 12/19/23 23:48 98.1 F 90 19 137/63 98 12/19/23 21:07 12/19/23 20:00 98.0 F 78 18 130/60 94 L 12/19/23 19:00 12/19/23 16:22 12/19/23 16:50 O2 Del Method O2 Flow Rate FiO2 12/21/23 08:45 Nasal Cannula 2 12/21/23 08:26 Room Air 12/21/23 08:00 Room Air 12/21/23 04:00 Room Air 12/21/23 03:11 12/21/23 02:11 12/20/23 23:28 Room Air 12/20/23 20:00 12/20/23 20:00 Nasal Cannula 2 12/20/23 19:46 Room Air 12/20/23 19:00 Room Air 12/20/23 16:00 Room Air 12/20/23 12:00 Room Air 12/20/23 08:00 Room Air 12/20/23 07:30 Room Air 12/20/23 07:55 Room Air 2 12/20/23 04:00 Room Air 12/19/23 23:48 12/19/23 21:07 Room Air 2 12/19/23 20:00 12/19/23 19:00 Room Air 12/19/23 16:22 Room Air 12/19/23 16:50 Room Air 2 28
--- NOTE | 2023-12-21 12:13 | PCM.PROG ---
Progress Note - Progress Note for Day of Date of Exam: 12/21/23 - Subjective Subjective: IS CURRENTLY OBSERVATION STATUS FOR TREATMENT OF DEHYDRATION, ACUTE KIDNEY INJURY, HYPOMAGNESEMIA, AND GENERALIZED WEAKNESS. HER MEDICAL HX INCLUDES: HTN, GERD, CHRONIC DIARRHEA, HYSTERECTOMY, GOUT, LUMBAR DDD, APPENDECTOMY, HYSTERECTOMY, HEART ABLATION, HERNIA REPAIR, RENAL ANEURYS MECTOMY, RIGHT KNEE REPLACEMENT. TODAY, SHE IS ALERT AND ORIENTED, SITTING UP IN BED ON MORNING ROUNDS. SHE CONTINUES TO COMPLAIN OF MODERATE WEAKNESS THIS MORNING. SHE REPORTS ONLY SLIGHT IMPROVEMENT IN SYMPTOMS SINCE ADMISSION. NURSING STAFF REPORTS THAT SHE HAS HAD AN UNEVENTFUL NIGHT. ON EXAMINATION, HEART IS REGULAR IN RATE AND RHYTHM. BILATERAL LUNGS ARE NOTED WITH DIMINISHED LUNG SOUNDS THROUGHOUT. ABDOMEN IS ROUND, SOFT, AND NON-TENDER WITH NORMAL BOWEL SOUNDS NOTED IN ALL QUADRANTS. WEAKNESS OF LOWER EXTREMITIES NOTED. NO EDEMA OF EXTREMITIES NOTED. HER VITALS THIS MORNING ARE: 98.0-81-20-94%-159/71. LABS WERE OBTAINED. WBC 8.5, RBC 2.88, HGB 9.0, HCT 27.3, PLT COUNT 115, SODIUM 139, POTASSIUM 4.2, CHLORIDE 111, BUN 40, CREATININE 1.21, GLUCOSE 137, CALCIUM 7.6, MAGNESIUM 1.8, AST 17, ALT 27, ALK PHOS 53, TOTAL PROTEIN 4.2, ALBUMIN 1.8. URINE CULTURE IS PENDING. PHYSICAL THERAPY WORKED WITH PATIENT YESTERDAY. PATIENT WAS COOPERATIVE AND ABLE TO PARTICIPATE. SHE IS CURRENTLY RECEIVING NORMAL SALINE AT 75 ML/HR, ROCEPHIN 1G IV DAILY, LOVENOX 30MG SC DAILY. HER HOME MEDICATIONS OF HYDRALAZINE, COZAAR, PROTONIX, AND CRESTOR WERE RESUMED. DUE TO LOW PROTEIN AND ALBUMIN, WE WILL ADD TPN AND ALBUMIN 25% IV DAILY. OTHERWISE, WE WILL CONTINUE WITH CURRENT PLAN OF CARE. WE WILL FOLLOW-UP WITH AM LABS AND CONTINUE TO MONITOR. TIME SPENT ON CLINICAL ASSESSMENT, REVIEWING LABS AND IMAGING, DECISION MAKING, AND DOCUMENTATION GREATER THAN 45 MINUTES. - Past Medical Family Social History Past Med/Fam/Surg Hx: No changes since H&P Allergies: Allergies acetaminophen [From Percocet] Allergy (Verified 12/19/23 16:55) hydrocodone [From Lorcet (hydrocodone)] Allergy (Verified 12/19/23 16:55) oxycodone [From Percocet] Allergy (Verified 12/19/23 16:55) Sulfa (Sulfonamide Antibiotics) [SULFA] Allergy (Verified 12/19/23 16:55) - Review of Systems ROS: No change since H&P - Vital Signs and I&O's Vital Signs: Vital Signs Temperature 98.4 F Temperature 98 F Pulse Rate [Right Radial] 79 Pulse Rate [Right Radial] 81 Respiratory Rate 20 Respiratory Rate 20 Blood Pressure [Left Arm] 155/66 Blood Pressure [Left Arm] 159/71 O2 Sat by Pulse Oximetry 98 O2 Sat by Pulse Oximetry 94 Intake and Output: Intake & Output 12/19/23 12/20/23 12/21/23 12/22/23 11:59 11:59 11:59 11:59 Intake Total 1579 / 1579 4651 / 4651 Balance 1579 / 1579 4651 / 4651 - Physical Exam Oriented: Normal Eyes: Normal Ear: Normal Nose: Normal Throat: Normal Respiratory: Generalized, Diminished Cardiovascular: Normal : Normal Auscultation: Bowel Sounds: Normal Palpation: Normal Tenderness: Normal Skin: Normal Musculoskeletal: Normal Psychiatric: Normal Mood Description: Calm Affect: Normal Speech Pattern: Clear - Laboratory and Diagnostics Result Diagrams: 12/21/23 04:45 12/21/23 04:45 Labs: 12/19/23 20:30 Urine,Clean Catch Urine Culture - Final Laboratory WBC 8.5 X10^3/uL (3.6-10.0) 12/21/23 04:45 RBC 2.88 X10^6/uL (3.5-5.4) L 12/21/23 04:45 Hgb 9.0 g/dL (12.0-16.0) L 12/21/23 04:45 Hct 27.3 % (36.0-47.0) L 12/21/23 04:45 MCV 94.7 fL (80.0-100.0) 12/21/23 04:45 MCH 31.3 pg (27.0-34.0) 12/21/23 04:45 MCHC 33.1 g/dL (33.0-35.0) 12/21/23 04:45 RDW 17.4 % (11.6-16.5) H 12/21/23 04:45 Plt Count 115 X10^3/uL (150.0-450.0) L 12/21/23 04:45 Plt Count Comment Decreased (ADEQUATE) A 12/21/23 04:45 MPV 8.5 fL (7.4-11.0) 12/21/23 04:45 Neut % (Auto) 83.9 % (42.0-75.0) H 12/21/23 04:45 Lymph % (Auto) 10.1 % (21.0-51.0) L 12/21/23 04:45 [place] % (Auto) 5.6 % (0.0-13.0) 12/21/23 04:45 Eos % (Auto) 0.2 % (0.9-2.9) L 12/21/23 04:45 Baso % (Auto) 0.2 % (0.2-1.0) 12/21/23 04:45 Neut # (Auto) 7.1 x10^3/uL (2.2-4.8) H 12/21/23 04:45 Lymph # (Auto) 0.9 X10^3/uL (1.3-2.9) L 12/21/23 04:45 [place] # (Auto) 0.5 x10^3/uL (0.3-0.8) 12/21/23 04:45 Eos # (Auto) 0.0 x10^3/uL (0.0-0.2) 12/21/23 04:45 Baso # (Auto) 0.0 X10^3/uL (0.0-0.1) 12/21/23 04:45 Absolute Nucleated RBC 0.1 /100WBC 12/21/23 04:45 Total Counted 100 12/21/23 04:45 Neutrophils % (Manual) 86 % (39-76) H 12/21/23 04:45 Lymphocytes % (Manual) 7 % (13-43) L 12/21/23 04:45 Monocytes % (Manual) 3 % (4-9) L 12/21/23 04:45 Metamyelocytes % 3 12/21/23 04:45 Myelocytes % 1 12/21/23 04:45 Plt Morphology Comment Normal (NORMAL) 12/21/23 04:45 RBC Morphology Abnormal (NORMAL) A 12/21/23 04:45 Microcytosis Slight A 12/21/23 04:45 Sodium 139 mmol/L (136-145) 12/21/23 04:45 Corrected Sodium 140 mmol/L (136-145) 12/21/23 04:45 Potassium 4.2 mmol/L (3.5-5.1) 12/21/23 04:45 Chloride 111 mmol/L (98-107) H 12/21/23 04:45 Carbon Dioxide 22.3 mmol/L (21-32) 12/21/23 04:45 BUN 40 mg/dL (7-18) H 12/21/23 04:45 Creatinine 1.21 mg/dL (0.55-1.02) H 12/21/23 04:45 Est GFR (MDRD) Af Amer 55 (>60) L 12/21/23 04:45 Est GFR (MDRD) Non-Af 45 (>60) L 12/21/23 04:45 Glucose 137 mg/dL (65-99) H 12/21/23 04:45 Calcium 7.6 mg/dL (8.5-10.1) L 12/21/23 04:45 Corrected Calcium 9.4 mg/dL (8.5-10.1) 12/21/23 04:45 Magnesium 1.8 mg/dL (2.0-2.9) L 12/21/23 04:45 Total Bilirubin 0.20 mg/dL (0.2-1.0) 12/21/23 04:45 AST 17 Units/L (15-37) 12/21/23 04:45 ALT 27 Units/L (12-78) 12/21/23 04:45 Alkaline Phosphatase 53 Units/L (46-116) 12/21/23 04:45 Total Protein 4.2 g/dL (6.4-8.2) L 12/21/23 04:45 Albumin 1.8 g/dL (3.4-5.0) L 12/21/23 04:45 Globulin 2.4 g/dL (2.5-4.5) L 12/21/23 04:45 Albumin/Globulin Ratio 0.8 Ratio (1.1-2.1) L 12/21/23 04:45 Specimen Type Clean catch urine 12/19/23 20:30 Urine Color Yellow (YELLOW) 12/19/23 20:30 Urine Appearance Clear (CLEAR) 12/19/23 20:30 Urine pH 6.0 (5.0 - 8.0) 12/19/23 20:30 Ur Specific [place] 1.010 (1.000-1.030) 12/19/23 20:30 Urine Protein Negative (NEGATIVE) 12/19/23 20:30 Urine Glucose (UA) Negative (NEGATIVE) 12/19/23 20:30 Urine Ketones Negative (NEGATIVE) 12/19/23 20:30 Urine Blood Negative (NEGATIVE) 12/19/23 20:30 Urine Nitrite Negative (NEGATIVE) 12/19/23 20:30 Urine Bilirubin Negative (NEGATIVE) 12/19/23 20:30 Urine Urobilinogen Normal (NORMAL) 12/19/23 20:30 Ur Leukocyte Esterase 3+ (NEGATIVE) 12/19/23 20:30 Urine RBC 0-2 /HPF (0-3) 12/19/23 20:30 Urine WBC 30-50 /HPF (0-5) A 12/19/23 20:30 Ur Squamous Epith Cells Moderate /HPF (NEGATIVE) 12/19/23 20:30 Urine Bacteria 2+ /HPF (NEGATIVE) 12/19/23 20:30 Ur Culture Indicated? Yes/culture set up 12/19/23 20:30 - Plan (1) Dehydration Status: Acute Plan: NORMAL SALINE AT 75 ML/HR, TPN, ALBUMIN 25% IV DAILY, ROCEPHIN 1G IV DAILY, LOVENOX 30MG SC DAILY. HER HOME MEDICATIONS OF HYDRALAZINE, COZAAR, PROTONIX, AND CRESTOR WERE RESUMED (2) Acute kidney injury Status: Acute (3) UTI (urinary tract infection) Status: Acute Qualifiers: Urinary tract infection type: acute cystitis Hematuria presence: without hematuria Qualified Code(s): N30.00 - Acute cystitis without hematuria (4) Hypomagnesemia Status: Acute Plan: MAGNESIUM IN IV FLUIDS (5) Hypoalbuminemia Status: Acute (6) Generalized weakness Status: Acute (7) HTN (hypertension) Status: Chronic Qualifiers: Hypertension type: primary hypertension Qualified Code(s): I10 - Essential (primary) hypertension (8) GERD (gastroesophageal reflux disease) Status: Chronic Qualifiers: Esophagitis presence: esophagitis presence not specified Qualified Code(s): K21.9 - Gastro-esophageal reflux disease without esophagitis (9) Lumbar degenerative disc disease Status: Chronic
[2023-12-21 23:19] LABS: BILIRUBIN,URINE NEGATIVE (NEGATIVE); BLOOD/HEMOGLOBIN,URINE NEGATIVE (NEGATIVE); GLUCOSE, URINE 1+ (NEGATIVE); KETONES,URINE NEGATIVE (NEGATIVE); LEUKOCYTE ESTERASE ,URINE NEGATIVE (NEGATIVE); NITRITES,URINE NEGATIVE (NEGATIVE); PROTEIN,URINE 1+ (NEGATIVE); UROBILINOGEN,URINE NORMAL (NORMAL)
[2023-12-21 23:24] LABS: APPEARANCE,URINE CLEAR (CLEAR); BACTERIA,URINE TRACE /HPF (NEGATIVE); COLOR,URINE PALE YELLOW (YELLOW); RBC,URINE NONE SEEN /HPF (0-3); SQUAMOUS EPITHELIAL CELL,UR FEW /HPF (NEGATIVE)
[2023-12-22 05:42] LABS: BASOPHILS % (AUTO) 0.2 % (0.2-1.0); EOSINOPHILS % (AUTO) 0.4 % (0.9-2.9); HEMOGLOBIN 8.9 g/dL (12.0-16.0); LYMPHOCYTES # (AUTO) 0.9 X10^3/uL (1.3-2.9); LYMPHOCYTES % (AUTO) 8.9 % (21.0-51.0); MEAN CORPUSCULAR HEMOGLOBIN 31.2 pg (27.0-34.0); MEAN CORPUSCULAR VOLUME 94.6 fL (80.0-100.0); MEAN PLATELET VOLUME 8.4 fL (7.4-11.0); MONOCYTES # (AUTO) 0.5 x10^3/uL (0.3-0.8); MONOCYTES % (AUTO) 4.9 % (0.0-13.0); NEUTROPHILS # (AUTO) 8.3 x10^3/uL (2.2-4.8); NEUTROPHILS % (AUTO) 85.6 % (42.0-75.0); PLATELET COUNT 110 X10^3/uL (150.0-450.0); RED BLOOD COUNT 2.86 X10^6/uL (3.5-5.4); RED CELL DISTRIBUTION WIDTH 17.4 % (11.6-16.5); WHITE BLOOD COUNT 9.7 X10^3/uL (3.6-10.0)
[2023-12-22 05:51] LABS: ALANINE AMINOTRANSFERASE 30 Units/L (12-78); ALBUMIN 2.1 g/dL (3.4-5.0); ALKALINE PHOSPHATASE 52 Units/L (46-116); ASPARTATE AMINO TRANSFERASE 16 Units/L (15-37); BLOOD UREA NITROGEN 37 mg/dL (7-18); CALCIUM 7.9 mg/dL (8.5-10.1); CARBON DIOXIDE 20.7 mmol/L (21-32); CHLORIDE 109 mmol/L (98-107); COR CA(FOR HYPOALB) 9.4 mg/dL (8.5-10.1); COR NA(FOR HYPERGLY) 140 mmol/L (136-145); CREATININE 1.02 mg/dL (0.55-1.02); GLUCOSE 158 mg/dL (65-99); POTASSIUM 3.3 mmol/L (3.5-5.1); SODIUM 139 mmol/L (136-145); TOTAL PROTEIN 4.6 g/dL (6.4-8.2); eGFR NON BLACK RACES 55 (>60)
--- NOTE | 2023-12-22 06:06 | RAD ---
EXAM: CHEST, 1 VIEW HISTORY: SOB; COMPARISON: 12/19/2023. TECHNIQUE: AP view of the chest FINDINGS: Right internal jugular central line with tip in good position. The cardiac and mediastinal contours are normal in size. There is patchy left base retrocardiac opacity. Blunted left costophrenic sulcu s. No pneumothorax. IMPRESSION: Patchy left base opacity may represent atelectasis or infiltrate. Recommend follow-up imaging to doc ument resolution after appropriate treatment. Blunted left costophrenic sulcus can be seen with small pleural effusion and pleural scarring. THIS IS AN ELECTRONICALLY VERIFIED FINAL REPORT 12/22/2023 6:02 AM - Electronically signed by Sj Swenson MD
[2023-12-22 06:18] LABS: ANISOCYTOSIS SLIGHT; METAMYELOCYTES % 2; PLATELET MORPHOLOGY COMMENT NORMAL (NORMAL)
[2023-12-22] MEDS ORDERED: CONSULT PHARMACY - POTASSIUM & MAGNESIUM XX SCH (07:00)
[2023-12-22] MEDS: NS + KCL 20 MEQ/L 1,000 ML IV SCH (08:47)
[2023-12-22] MEDS ORDERED: K-DUR TAB 20 MEQ PO SCH (09:00)
[2023-12-22] MEDS: CLINIMIX 5 %/20 % 1,000 ML with MVI INJ (ADULT) 10 ML, MAGNESIUM SULFATE 50% INJ VIAL 1 G IV SCH (09:51)
[2023-12-22 10:41] LABS: ANISOCYTOSIS SLIGHT
[2023-12-22] MEDS: NS 100 ML IV 100 ML ONE (12:22)
[2023-12-22] MEDS: OMNIPAQUE 350 mg/mL 100 mL BTL 100 ML ONE (12:23)
--- NOTE | 2023-12-22 13:17 | CT ---
EXAM:SOFT TISSUE NECK WITH CONHISTORY:FOLLOW UP LEFT CERVICAL LYMPH NODES;COMPARISON:NoneTECHNIQUE:Multiple axial images of the neck soft tissues were obtained with IV contrast. Coronal and sagittal reformats were made and reviewed. Dose reduction techniques included Automated Exposure Control (AEC) and adjustment of mA and kV.FINDINGS:A BB marker was placed in the left neck at the site of palpable abnormality. This is superficial to the upper left sternocleidomastoid muscle. There is no mass or significant lymphadenopathy the at this site.Adenoids, tonsils, soft palate, epiglottis, and prevertebral soft tissues are not enlarged. There is preservation of the pharyngeal and tracheal airway. Generally symmetric vocal cords.No fluid in the sinuses or mucosal thickening to suggest sinusitis. There is no mastoid effusion. Nasal cavity is patent with no mass or polyp. Globes and orbital contents appear normal.Parotid glands submandibular glands, and thyroid gland have normal size and enhancement. No mass or significant lymphadenopathy.Superficial and deep fat planes of the neck are intact. No inflammatory changes.Degenerative changes are present in the spine.Upper lungs have no significant abnormality.IMPRESSION:1. No mass or significant lymphadenopathyTHIS IS AN ELECTRONICALLY VERIFIED FINAL REPORT12/22/2023 1:13 PM - Electronically signed by Fernando Davila MD
--- NOTE | 2023-12-22 13:41 | PCM.PROG ---
Progress Note - Progress Note for Day of Date of Exam: 12/22/23 - Subjective Subjective: IS CURRENTLY OBSERVATION STATUS FOR TREATMENT OF DEHYDRATION, ACUTE KIDNEY INJURY, HYPOMAGNESEMIA, AND GENERALIZED WEAKNESS. HER MEDICAL HX INCLUDES: HTN, GERD, CHRONIC DIARRHEA, HYSTERECTOMY, GOUT, LUMBAR DDD, APPENDECTOMY, HYSTERECTOMY, HEART ABLATION, HERNIA REPAIR, RENAL ANEURYS MECTOMY, RIGHT KNEE REPLACEMENT. PATIENT HAS ALSO HAD AN ENLARGED LEFT CERVICAL LYMPH NODE THAT WE HAVE BEEN MONITORING. TODAY, SHE IS ALERT AND ORIENTED, SITTING UP IN BED ON MORNING ROUNDS. SHE CONTINUES TO COMPLAIN OF MODERATE WEAKNESS THIS MORNING. SHE REPORTS ONLY SLIGHT IMPROVEMENT IN SYMPTOMS SINCE ADMISSION. SHE DOES REPORT OCCASIONAL SHORTNESS OF BREATH, BUT REPORTS THAT IT IS MILD. NURSING STAFF REPORTS THAT SHE HAS HAD AN UNEVENTFUL NIGHT. ON EXAMINATION, HEART IS REGULAR IN RATE AND RHYTHM. BILATERAL LUNGS ARE NOTED WITH DIMINISHED LUNG SOUNDS THROUGHOUT. ABDOMEN IS ROUND, SOFT, AND NON-TENDER WITH NORMAL BOWEL SOUNDS NOTED IN ALL QUADRANTS. WEAKNESS OF LOWER EXTREMITIES NOTED. NO EDEMA OF EXTREMITIES NOTED. HER VITALS THIS MORNING ARE: 98.2-85-20-98%-184/73. LABS WERE OBTAINED. WBC 9.7, RBC 2.86, HGB 8.9, HCT 27.0, PLT COUNT 110, SODIUM 139, POTASSIUM 3.3, CHLORIDE 109, BUN 37, CREATININE 1.02, GLUCOSE 158, CALCIUM 7.9, MAGNESIUM 2.3, TOTAL BILI 0.20, AST 16, ALT 30, ALK P HOS 52, TOTAL PROTEIN 4.6, ALBUMIN 2.0, CRP 2.00. URINE CULTURE IS PENDING. A CHEST XRAY WAS OBTAINED THIS MORNING AND REVEALED: Patchy left base opacity may represent atelectasis or infiltrate. Recommend follow-up imaging to document resolution after appropriate treatment. Blunted left costophrenic sulcus can be seen with small pleural effusion and pleural scarring. PHYSICAL THERAPY WORKED WITH PATIENT THIS MORNING. PATIENT WAS COOPERATIVE AND ABLE TO PARTICIPATE. SHE IS CURRENTLY RECEIVING NORMAL SALINE AT 75 ML/HR, TPN AT 42 ML/HR, ALBUMIN 25% IV DAILY, ROCEPHIN 1G IV DAILY, LOVENOX 30MG SC DAILY. HER HOME MEDICATIONS OF HYDRALAZINE, COZAAR, PROTONIX, AND CRESTOR WERE RESUMED. WE WILL OBTAIN A SOFT TISSUE NECK CT TODAY FOR EVALUATION OF THE LEFT CERVICAL LYMPH NODES THAT WE HAVE BEEN MONITORING. OTHERWISE, WE WILL CONTINUE WITH CURRENT PLAN OF CARE. WE WILL FOLLOW-UP WITH AM LABS AND CONTINUE TO MONITOR. TIME SPENT ON CLINICAL ASSESSMENT, REVIEWING LABS AND IMAGING, DECISION MAKING, AND DOCUMENTATION GREATER THAN 45 MINUTES. - Past Medical Family Social History Past Med/Fam/Surg Hx: No changes since H&P Allergies: Allergies hydrocodone [From Lorcet (hydrocodone)] Allergy (Verified 12/19/23 16:55) oxycodone [From Percocet] Allergy (Verified 12/19/23 16:55) Sulfa (Sulfonamide Antibiotics) [SULFA] Allergy (Verified 12/19/23 16:55) - Review of Systems ROS: No change since H&P - Vital Signs and I&O's Vital Signs: Vital Signs Temperature 97.7 F Temperature 98.2 F Pulse Rate [Right Radial] 82 Pulse Rate [Right Radial] 85 Respiratory Rate 20 Respiratory Rate 20 Blood Pressure [Left Arm] 160/75 Blood Pressure [Left Arm] 184/73 O2 Sat by Pulse Oximetry 99 O2 Sat by Pulse Oximetry 98 Intake and Output: Intake & Output 12/20/23 12/21/23 12/22/23 12/23/23 11:59 11:59 11:59 11:59 Intake Total 1579 / 1579 4651 / 4651 3699 / 3699 Balance 1579 / 1579 4651 / 4651 3699 / 3699 - Physical Exam Oriented: Normal Eyes: Normal Ear: Normal Nose: Normal Throat: Normal Respiratory: Generalized, Diminished Cardiovascular: Normal : Normal Auscultation: Bowel Sounds: Normal Tenderness: Normal Skin: Normal Musculoskeletal: Normal Psychiatric: Normal Mood Description: Calm Affect: Normal Speech Pattern: Clear - Laboratory and Diagnostics Result Diagrams: 12/22/23 04:50 12/22/23 04:50 Labs: 12/19/23 20:30 Urine,Clean Catch Urine Culture - Final Laboratory WBC 9.7 X10^3/uL (3.6-10.0) 12/22/23 04:50 RBC 2.86 X10^6/uL (3.5-5.4) L 12/22/23 04:50 Hgb 8.9 g/dL (12.0-16.0) L 12/22/23 04:50 Hct 27.0 % (36.0-47.0) L 12/22/23 04:50 MCV 94.6 fL (80.0-100.0) 12/22/23 04:50 MCH 31.2 pg (27.0-34.0) 12/22/23 04:50 MCHC 33.0 g/dL (33.0-35.0) 12/22/23 04:50 RDW 17.4 % (11.6-16.5) H 12/22/23 04:50 Plt Count 110 X10^3/uL (150.0-450.0) L 12/22/23 04:50 Plt Count Comment Decreased (ADEQUATE) A 12/22/23 04:50 MPV 8.4 fL (7.4-11.0) 12/22/23 04:50 Neut % (Auto) 85.6 % (42.0-75.0) H 12/22/23 04:50 Lymph % (Auto) 8.9 % (21.0-51.0) L 12/22/23 04:50 [place] % (Auto) 4.9 % (0.0-13.0) 12/22/23 04:50 Eos % (Auto) 0.4 % (0.9-2.9) L 12/22/23 04:50 Baso % (Auto) 0.2 % (0.2-1.0) 12/22/23 04:50 Neut # (Auto) 8.3 x10^3/uL (2.2-4.8) H 12/22/23 04:50 Lymph # (Auto) 0.9 X10^3/uL (1.3-2.9) L 12/22/23 04:50 [place] # (Auto) 0.5 x10^3/uL (0.3-0.8) 12/22/23 04:50 Eos # (Auto) 0.0 x10^3/uL (0.0-0.2) 12/22/23 04:50 Baso # (Auto) 0.0 X10^3/uL (0.0-0.1) 12/22/23 04:50 Absolute Nucleated RBC 0.2 /100WBC 12/22/23 04:50 Total Counted 100 12/22/23 04:50 Neutrophils % (Manual) 84 % (39-76) H 12/22/23 04:50 Lymphocytes % (Manual) 8 % (13-43) L 12/22/23 04:50 Monocytes % (Manual) 6 % (4-9) 12/22/23 04:50 Metamyelocytes % 2 12/22/23 04:50 Myelocytes % 1 12/21/23 04:45 Plt Morphology Comment Normal (NORMAL) 12/22/23 04:50 RBC Morphology Abnormal (NORMAL) A 12/22/23 04:50 Anisocytosis Slight A 12/22/23 04:50 Microcytosis Bending Roll Hand 12/21/23 04:45 Sodium 139 mmol/L (136-145) 12/22/23 04:50 Corrected Sodium 140 mmol/L (136-145) 12/22/23 04:50 Potassium 3.3 mmol/L (3.5-5.1) L 12/22/23 04:50 Chloride 109 mmol/L (98-107) H 12/22/23 04:50 Carbon Dioxide 20.7 mmol/L (21-32) L 12/22/23 04:50 BUN 37 mg/dL (7-18) H 12/22/23 04:50 Creatinine 1.02 mg/dL (0.55-1.02) 12/22/23 04:50 Est GFR (MDRD) Af Amer > 60 (>60) 12/22/23 04:50 Est GFR (MDRD) Non-Af 55 (>60) L 12/22/23 04:50 Glucose 158 mg/dL (65-99) H 12/22/23 04:50 Calcium 7.9 mg/dL (8.5-10.1) L 12/22/23 04:50 Corrected Calcium 9.4 mg/dL (8.5-10.1) 12/22/23 04:50 Magnesium 2.3 mg/dL (2.0-2.9) 12/22/23 04:50 Total Bilirubin 0.20 mg/dL (0.2-1.0) 12/22/23 04:50 AST 16 Units/L (15-37) 12/22/23 04:50 ALT 30 Units/L (12-78) 12/22/23 04:50 Alkaline Phosphatase 52 Units/L (46-116) 12/22/23 04:50 C-Reactive Protein 2.00 mg/L (0-3.0) 12/22/23 04:50 Total Protein 4.6 g/dL (6.4-8.2) L 12/22/23 04:50 Albumin 2.1 g/dL (3.4-5.0) L 12/22/23 04:50 Globulin 2.5 g/dL (2.5-4.5) 12/22/23 04:50 Albumin/Globulin Ratio 0.8 Ratio (1.1-2.1) L 12/22/23 04:50 Specimen Type Clean catch urine 12/21/23 23:06 Urine Color Pale yellow (YELLOW) 12/21/23 23:06 Urine Appearance Clear (CLEAR) 12/21/23 23:06 Urine pH 6.0 (5.0 - 8.0) 12/21/23 23:06 Ur Specific [place] 1.015 (1.000-1.030) 12/21/23 23:06 Urine Protein 1+ (NEGATIVE) 12/21/23 23:06 Urine Glucose (UA) 1+ (NEGATIVE) 12/21/23 23:06 Urine Ketones Negative (NEGATIVE) 12/21/23 23:06 Urine Blood Negative (NEGATIVE) 12/21/23 23:06 Urine Nitrite Negative (NEGATIVE) 12/21/23 23:06 Urine Bilirubin Negative (NEGATIVE) 12/21/23 23:06 Urine Urobilinogen Normal (NORMAL) 12/21/23 23:06 Ur Leukocyte Esterase Negative (NEGATIVE) 12/21/23 23:06 Urine RBC None seen /HPF (0-3) 12/21/23 23:06 Urine WBC 0-2 /HPF (0-5) 12/21/23 23:06 Ur Squamous Epith Cells Few /HPF (NEGATIVE) 12/21/23 23:06 Urine Bacteria Trace /HPF (NEGATIVE) 12/21/23 23:06 Ur Culture Indicated? Yes/culture set up 12/21/23 23:06 - Plan (1) Dehydration Status: Acute Plan: NORMAL SALINE AT 75 ML/HR, TPN, ALBUMIN 25% IV DAILY, ROCEPHIN 1G IV DAILY, LOVENOX 30MG SC DAILY. HER HOME MEDICATIONS OF HYDRALAZINE, COZAAR, PROTONIX, AND CRESTOR WERE RESUMED (2) Acute kidney injury Status: Acute (3) UTI (urinary tract infection) Status: Acute Qualifiers: Urinary tract infection type: acute cystitis Hematuria presence: without hematuria Qualified Code(s): N30.00 - Acute cystitis without hematuria (4) Hypomagnesemia Status: Acute Plan: MAGNESIUM IN IV FLUIDS (5) Hypoalbuminemia Status: Acute (6) Generalized weakness Status: Acute (7) HTN (hypertension) Status: Chronic Qualifiers: Hypertension type: primary hypertension Qualified Code(s): I10 - Essential (primary) hypertension (8) GERD (gastroesophageal reflux disease) Status: Chronic Qualifiers: Esophagitis presence: esophagitis presence not specified Qualified Code(s): K21.9 - Gastro-esophageal reflux disease without esophagitis (9) Lumbar degenerative disc disease Status: Chronic
[2023-12-22 19:42] VITALS: BMI 21.9
[2023-12-23 05:29] LABS: EOSINOPHILS % (AUTO) 0.3 % (0.9-2.9); LYMPHOCYTES # (AUTO) 0.9 X10^3/uL (1.3-2.9); MEAN CORPUSCULAR VOLUME 94.4 fL (80.0-100.0); PLATELET COUNT 98 X10^3/uL (150.0-450.0)
[2023-12-23 05:35] LABS: BASOPHILS % (AUTO) 0.1 % (0.2-1.0); HEMATOCRIT 26.5 % (36.0-47.0); HEMOGLOBIN 8.7 g/dL (12.0-16.0); LYMPHOCYTES % (AUTO) 9.4 % (21.0-51.0); MEAN CORPUSCULAR HEMOGLOBIN 30.8 pg (27.0-34.0); MEAN CORPUSCULAR HGB CONC 32.7 g/dL (33.0-35.0); MEAN PLATELET VOLUME 8.4 fL (7.4-11.0); MONOCYTES # (AUTO) 0.4 x10^3/uL (0.3-0.8); MONOCYTES % (AUTO) 4.5 % (0.0-13.0); NEUTROPHILS # (AUTO) 8.2 x10^3/uL (2.2-4.8); NEUTROPHILS % (AUTO) 85.7 % (42.0-75.0); RED BLOOD COUNT 2.81 X10^6/uL (3.5-5.4); RED CELL DISTRIBUTION WIDTH 17.7 % (11.6-16.5); WHITE BLOOD COUNT 9.5 X10^3/uL (3.6-10.0)
[2023-12-23 05:41] LABS: ALANINE AMINOTRANSFERASE 36 Units/L (12-78); ALBUMIN 2.4 g/dL (3.4-5.0); ALKALINE PHOSPHATASE 49 Units/L (46-116); ASPARTATE AMINO TRANSFERASE 20 Units/L (15-37); BLOOD UREA NITROGEN 34 mg/dL (7-18); CARBON DIOXIDE 20.7 mmol/L (21-32); CHLORIDE 109 mmol/L (98-107); COR CA(FOR HYPOALB) 9.3 mg/dL (8.5-10.1); COR NA(FOR HYPERGLY) 138 mmol/L (136-145); CREATININE 0.91 mg/dL (0.55-1.02); GLUCOSE 153 mg/dL (65-99); POTASSIUM 3.7 mmol/L (3.5-5.1); SODIUM 137 mmol/L (136-145); TOTAL PROTEIN 4.7 g/dL (6.4-8.2); eGFR NON BLACK RACES > 60 (>60)
[2023-12-23 06:17] LABS: ANISOCYTOSIS SLIGHT; BAND NEUTROPHILS % 2 % (0-10); PLATELET MORPHOLOGY COMMENT NORMAL (NORMAL)
[2023-12-23] MEDS ORDERED: CONSULT PHARMACY - POTASSIUM & MAGNESIUM XX SCH ×2 (07:00→20:00)
[2023-12-23] MEDS: K-DUR TAB 20 MEQ PO SCH (08:43)
--- NOTE | 2023-12-23 13:00 | PCM.PROG ---
Progress Note - Progress Note for Day of Date of Exam: 12/23/23 - Subjective Subjective: IS CURRENTLY OBSERVATION STATUS FOR TREATMENT OF DEHYDRATION, ACUTE KIDNEY INJURY, HYPOMAGNESEMIA, AND GENERALIZED WEAKNESS. HER MEDICAL HX INCLUDES: HTN, GERD, CHRONIC DIARRHEA, HYSTERECTOMY, GOUT, LUMBAR DDD, APPENDECTOMY, HYSTERECTOMY, HEART ABLATION, HERNIA REPAIR, RENAL ANEURYS MECTOMY, RIGHT KNEE REPLACEMENT. TODAY, SHE IS ALERT AND ORIENTED, SITTING UP IN BED ON MORNING ROUNDS. SHE CONTINUES TO COMPLAIN OF MODERATE WEAKNESS THIS MORNING. SHE REPORTS ONLY SLIGHT IMPROVEMENT IN SYMPTOMS SINCE ADMISSION. SHE DOES REPORT OCCASIONAL SHORTNESS OF BREATH, BUT REPORTS THAT IT IS MILD. NURSING STAFF REPORTS THAT SHE HAS HAD AN UNEVENTFUL NIGHT. ON EXAMINATION, HEART IS REGULAR IN RATE AND RHYTHM. BILATERAL LUNGS ARE NOTED WITH DIMINISHED LUNG SOUNDS THROUGHOUT. ABDOMEN IS ROUND, SOFT, AND NON-TENDER WITH NORMAL BOWEL SOUNDS NOTED IN ALL QUADRANTS. WEAKNESS OF LOWER EXTREMITIES NOTED. NO EDEMA OF EXTREMITIES NOTED. HER VITALS THIS MORNING ARE: 97.8-90-18-99%-189/81. LABS WERE OBTAINED. WBC 9.5, RBC 2.81, HGB 8.7, HCT 26.5, PLT COUNT 98, SODIUM 137, POTASSIUM 3.7, CHLORIDE 109, BUN 34, CREATININE 0.91, GLUCOSE 153, CALCIUM 8.0, MAGNESIUM 2.5, TOTAL BILI 0.20, AST 20, ALT 36, ALK PHOS 49, TOTAL PROTEIN 4.7, ALBUMIN 2.4. PHYSICAL THERAPY WORKED WITH PATIENT THIS MORNING. PATIENT WAS COOPERATIVE AND ABLE TO PARTICIPATE. SHE IS CURRENTLY RECEIVING NORMAL SALINE AT 75 ML/HR, TPN AT 42 ML/HR, ALBUMIN 25% IV DAILY, ROCEPHIN 1G IV DAILY, LOVENOX 30MG SC DAILY. HER HOME MEDICATIONS OF HYDRALAZINE, COZAAR, PROTONIX, AND CRESTOR WERE RESUMED. I BELIEVE THAT SHE WOULD BENEFIT FROM CONTINUED PT SERVICES TO FACILITATE HIGHEST LEVEL OF FUNCIT[employer]ING PRIOR TO RETURNING HOME. SHE COULD ALSO BENEFIT FROM CONTINUING TO RECEIVE TPN DUE TO PROTEIN DEFICIENCY. WE WILL DISCUSS THIS WITH CASE MANAGEMENT. OTHERWISE, WE WILL CONTINUE WITH CURRENT PLAN OF CARE. WE WILL FOLLOW-UP WITH AM LABS AND CONTINUE TO MONITOR. TIME SPENT ON CLINICAL ASSESSMENT, REVIEWING LABS AND IMAGING, DECISION MAKING, AND DOCUMENTATION GREATER THAN 45 MINUTES. - Past Medical Family Social History Past Med/Fam/Surg Hx: No changes since H&P Allergies: Allergies hydrocodone [From Lorcet (hydrocodone)] Allergy (Verified 12/19/23 16:55) oxycodone [From Percocet] Allergy (Verified 12/19/23 16:55) Sulfa (Sulfonamide Antibiotics) [SULFA] Allergy (Verified 12/19/23 16:55) - Review of Systems ROS: No change since H&P - Vital Signs and I&O's Vital Signs: Vital Signs Temperature 97.8 F Pulse Rate [Right Radial] 90 Respiratory Rate 18 Blood Pressure [Left Arm] 189/81 O2 Sat by Pulse Oximetry 99 Intake and Output: Intake & Output 12/21/23 12/22/23 12/23/23 12/24/23 11:59 11:59 11:59 11:59 Intake Total 4651 / 4651 3699 / 3699 3567 / 3567 Balance 4651 / 4651 3699 / 3699 3567 / 3567 - Physical Exam Oriented: Normal Eyes: Normal Ear: Normal Nose: Normal Throat: Normal Respiratory: Generalized, Diminished Cardiovascular: Normal : Normal Auscultation: Bowel Sounds: Normal Tenderness: Normal Skin: Normal Musculoskeletal: Normal Psychiatric: Normal Mood Description: Calm Affect: Normal Speech Pattern: Clear - Laboratory and Diagnostics Result Diagrams: 12/23/23 04:50 12/23/23 04:50 Labs: 12/21/23 23:06 Urine,Clean Catch Urine Culture - Preliminary 12/19/23 20:30 Urine,Clean Catch Urine Culture - Final Laboratory WBC 9.5 X10^3/uL (3.6-10.0) 12/23/23 04:50 RBC 2.81 X10^6/uL (3.5-5.4) L 12/23/23 04:50 Hgb 8.7 g/dL (12.0-16.0) L 12/23/23 04:50 Hct 26.5 % (36.0-47.0) L 12/23/23 04:50 MCV 94.4 fL (80.0-100.0) 12/23/23 04:50 MCH 30.8 pg (27.0-34.0) 12/23/23 04:50 MCHC 32.7 g/dL (33.0-35.0) L 12/23/23 04:50 RDW 17.7 % (11.6-16.5) H 12/23/23 04:50 Plt Count 98 X10^3/uL (150.0-450.0) L 12/23/23 04:50 Plt Count Comment Decreased (ADEQUATE) A 12/23/23 04:50 MPV 8.4 fL (7.4-11.0) 12/23/23 04:50 Neut % (Auto) 85.7 % (42.0-75.0) H 12/23/23 04:50 Lymph % (Auto) 9.4 % (21.0-51.0) L 12/23/23 04:50 [place] % (Auto) 4.5 % (0.0-13.0) 12/23/23 04:50 Eos % (Auto) 0.3 % (0.9-2.9) L 12/23/23 04:50 Baso % (Auto) 0.1 % (0.2-1.0) L 12/23/23 04:50 Neut # (Auto) 8.2 x10^3/uL (2.2-4.8) H 12/23/23 04:50 Lymph # (Auto) 0.9 X10^3/uL (1.3-2.9) L 12/23/23 04:50 Brule # (Auto) 0.4 x10^3/uL (0.3-0.8) 12/23/23 04:50 Eos # (Auto) 0.0 x10^3/uL (0.0-0.2) 12/23/23 04:50 Baso # (Auto) 0.0 X10^3/uL (0.0-0.1) 12/23/23 04:50 Absolute Nucleated RBC 0.1 /100WBC 12/23/23 04:50 Total Counted 100 12/23/23 04:50 Neutrophils % (Manual) 89 % (39-76) H 12/23/23 04:50 Band Neutrophils % 2 % (0-10) 12/23/23 04:50 Lymphocytes % (Manual) 6 % (13-43) L 12/23/23 04:50 Monocytes % (Manual) 3 % (4-9) L 12/23/23 04:50 Metamyelocytes % 2 12/22/23 04:50 Myelocytes % 1 12/21/23 04:45 Plt Morphology Comment Normal (NORMAL) 12/23/23 04:50 RBC Morphology Abnormal (NORMAL) A 12/23/23 04:50 Anisocytosis Slight A 12/23/23 04:50 Microcytosis [employer] 12/21/23 04:45 Sodium 137 mmol/L (136-145) 12/23/23 04:50 Corrected Sodium 138 mmol/L (136-145) 12/23/23 04:50 Potassium 3.7 mmol/L (3.5-5.1) 12/23/23 04:50 Chloride 109 mmol/L (98-107) H 12/23/23 04:50 Carbon Dioxide 20.7 mmol/L (21-32) L 12/23/23 04:50 BUN 34 mg/dL (7-18) H 12/23/23 04:50 Creatinine 0.91 mg/dL (0.55-1.02) 12/23/23 04:50 Est GFR (MDRD) Af Amer > 60 (>60) 12/23/23 04:50 Est GFR (MDRD) Non-Af > 60 (>60) 12/23/23 04:50 Glucose 153 mg/dL (65-99) H 12/23/23 04:50 Calcium 8.0 mg/dL (8.5-10.1) L 12/23/23 04:50 Corrected Calcium 9.3 mg/dL (8.5-10.1) 12/23/23 04:50 Magnesium 2.5 mg/dL (2.0-2.9) 12/23/23 04:50 Total Bilirubin 0.20 mg/dL (0.2-1.0) 12/23/23 04:50 AST 20 Units/L (15-37) 12/23/23 04:50 ALT 36 Units/L (12-78) 12/23/23 04:50 Alkaline Phosphatase 49 Units/L (46-116) 12/23/23 04:50 C-Reactive Protein 2.00 mg/L (0-3.0) 12/22/23 04:50 Total Protein 4.7 g/dL (6.4-8.2) L 12/23/23 04:50 Albumin 2.4 g/dL (3.4-5.0) L 12/23/23 04:50 Globulin 2.3 g/dL (2.5-4.5) L 12/23/23 04:50 Albumin/Globulin Ratio 1.0 Ratio (1.1-2.1) L 12/23/23 04:50 Specimen Type Clean catch urine 12/21/23 23:06 Urine Color Pale yellow (YELLOW) 12/21/23 23:06 Urine Appearance Clear (CLEAR) 12/21/23 23:06 Urine pH 6.0 (5.0 - 8.0) 12/21/23 23:06 Ur Specific [place] 1.015 (1.000-1.030) 12/21/23 23:06 Urine Protein 1+ (NEGATIVE) 12/21/23 23:06 Urine Glucose (UA) 1+ (NEGATIVE) 12/21/23 23:06 Urine Ketones Negative (NEGATIVE) 12/21/23 23:06 Urine Blood Negative (NEGATIVE) 12/21/23 23:06 Urine Nitrite Negative (NEGATIVE) 12/21/23 23:06 Urine Bilirubin Negative (NEGATIVE) 12/21/23 23:06 Urine Urobilinogen Normal (NORMAL) 12/21/23 23:06 Ur Leukocyte Esterase Negative (NEGATIVE) 12/21/23 23:06 Urine RBC None seen /HPF (0-3) 12/21/23 23:06 Urine WBC 0-2 /HPF (0-5) 12/21/23 23:06 Ur Squamous Epith Cells Few /HPF (NEGATIVE) 12/21/23 23:06 Urine Bacteria Trace /HPF (NEGATIVE) 12/21/23 23:06 Ur Culture Indicated? Yes/culture set up 12/21/23 23:06 - Plan (1) Dehydration Status: Acute Plan: NORMAL SALINE AT 75 ML/HR, TPN, ALBUMIN 25% IV DAILY, ROCEPHIN 1G IV DAILY, LOVENOX 30MG SC DAILY. HER HOME MEDICATIONS OF HYDRALAZINE, COZAAR, PROTONIX, AND CRESTOR WERE RESUMED (2) Protein deficiency Status: Acute (3) Acute kidney injury Status: Acute (4) Physical deconditioning Status: Acute Plan: PT/OT (5) UTI (urinary tract infection) Status: Acute Qualifiers: Urinary tract infection type: acute cystitis Hematuria presence: without hematuria Qualified Code(s): N30.00 - Acute cystitis without hematuria (6) Hypomagnesemia Status: Acute Plan: MAGNESIUM IN IV FLUIDS (7) Hypoalbuminemia Status: Acute (8) Generalized weakness Status: Acute (9) HTN (hypertension) Status: Chronic Qualifiers: Hypertension type: primary hypertension Qualified Code(s): I10 - Essential (primary) hypertension (10) GERD (gastroesophageal reflux disease) Status: Chronic Qualifiers: Esophagitis presence: esophagitis presence not specified Qualified Code(s): K21.9 - Gastro-esophageal reflux disease without esophagitis (11) Lumbar degenerative disc disease Status: Chronic
--- NOTE | 2023-12-23 14:16 | RAD ---
EXAM:CHEST, 1 VIEWHISTORY:SOB; HTN,HERNIA, ORTHO, APPENDIX, KIDNEYCOMPARISON:Prior study or studies were utilized for comparison during interpretation with the most relevant dated 12/21/2023TECHNIQUE:CHEST, 1 VIEWFINDINGS:Chest:Lines and tubes: Right sided implanted port with tip in satisfactory position.Mediastinum: Cardiac and mediastinal shadow is within normal limits for size and contour.Pulmonary vessels: No pulmonary vascular congestion.Lung coronado: No suspicious airspace opacity.Pleura: No effusion. No pneumothorax.Bones and soft tissues: No acute osseous or soft tissue abnormality.IMPRESSION:1. No acute cardiopulmonary abnormalityTHIS IS AN ELECTRONICALLY VERIFIED FINAL REPORT12/23/2023 2:12 PM - Electronically signed by Cachorro Gray MD
[2023-12-24 06:17] LABS: BASOPHILS % (AUTO) 0.4 % (0.2-1.0); EOSINOPHILS % (AUTO) 0.5 % (0.9-2.9); HEMATOCRIT 25.5 % (36.0-47.0); HEMOGLOBIN 8.3 g/dL (12.0-16.0); LYMPHOCYTES # (AUTO) 0.7 X10^3/uL (1.3-2.9); LYMPHOCYTES % (AUTO) 7.9 % (21.0-51.0); MEAN CORPUSCULAR HEMOGLOBIN 30.9 pg (27.0-34.0); MEAN CORPUSCULAR HGB CONC 32.7 g/dL (33.0-35.0); MEAN CORPUSCULAR VOLUME 94.6 fL (80.0-100.0); MEAN PLATELET VOLUME 8.3 fL (7.4-11.0); MONOCYTES # (AUTO) 0.4 x10^3/uL (0.3-0.8); MONOCYTES % (AUTO) 3.9 % (0.0-13.0); NEUTROPHILS # (AUTO) 8.1 x10^3/uL (2.2-4.8); NEUTROPHILS % (AUTO) 87.3 % (42.0-75.0); PLATELET COUNT 85 X10^3/uL (150.0-450.0); RED BLOOD COUNT 2.69 X10^6/uL (3.5-5.4); RED CELL DISTRIBUTION WIDTH 18.2 % (11.6-16.5); WHITE BLOOD COUNT 9.3 X10^3/uL (3.6-10.0)
[2023-12-24 06:21] LABS: ALANINE AMINOTRANSFERASE 33 Units/L (12-78); ALBUMIN 2.6 g/dL (3.4-5.0); ALKALINE PHOSPHATASE 49 Units/L (46-116); ASPARTATE AMINO TRANSFERASE 16 Units/L (15-37); BLOOD UREA NITROGEN 33 mg/dL (7-18); CALCIUM 8.1 mg/dL (8.5-10.1); CARBON DIOXIDE 20.8 mmol/L (21-32); CHLORIDE 109 mmol/L (98-107); COR CA(FOR HYPOALB) 9.2 mg/dL (8.5-10.1); COR NA(FOR HYPERGLY) 137 mmol/L (136-145); CREATININE 0.93 mg/dL (0.55-1.02); GLUCOSE 158 mg/dL (65-99); MAGNESIUM 2.3 mg/dL (2.0-2.9); POTASSIUM 4.1 mmol/L (3.5-5.1); SODIUM 136 mmol/L (136-145); TOTAL PROTEIN 4.7 g/dL (6.4-8.2); eGFR NON BLACK RACES > 60 (>60)
[2023-12-24 06:57] LABS: BAND NEUTROPHILS % 1 % (0-10)
[2023-12-24 06:58] LABS: ANISOCYTOSIS SLIGHT; PLATELET MORPHOLOGY COMMENT NORMAL (NORMAL)
[2023-12-24] MEDS ORDERED: DRUG FILTER EXTENSION SET ONE (09:39)
[2023-12-24] MEDS: LASIX IVP ONE (09:51)
--- NOTE | 2023-12-24 10:31 | RAD ---
EXAM: CHEST, 1 VIEW HISTORY: SOB; Unavailable COMPARISON: 12/23/2023 FINDINGS: The trachea is midline. The cardiac silhouette is stable as is a right-sided Port-A-Cath.. The lungs demonstrate increasing density in the right medial lung base which is new from prior suggesting deve loping pneumonia. There is also blunting of the left costophrenic angle which may be due to a tiny e ffusion.. The bony thorax is unremarkable. IMPRESSION: Increasing density in the right medial lung base concerning for developing pneumonia. There is also blunting of the left costophrenic angle which could be due to a tiny effusion THIS IS AN ELECTRONICALLY VERIFIED FINAL REPORT 12/24/2023 10:27 AM - Electronically signed by Mal Uribe MD
[2023-12-24] MEDS: CATAPRES TAB 0.1 MG PO ONE (11:27)
[2023-12-24] MEDS ORDERED: APRESOLINE INJ 20 MG VIAL ONE (15:06)
[2023-12-24] MEDS: APRESOLINE INJ 20 MG VIAL IVP ONE (15:11)
[2023-12-24] MEDS: DRUG FILTER EXTENSION SET ONE (18:19)
[2023-12-24] MEDS: KLONOPIN TAB 0.5 MG PO ONE (23:23)
[2023-12-25 05:09] LABS: BASOPHILS % (AUTO) 0.4 % (0.2-1.0); EOSINOPHILS % (AUTO) 0.4 % (0.9-2.9); HEMATOCRIT 25.4 % (36.0-47.0); HEMOGLOBIN 8.4 g/dL (12.0-16.0); LYMPHOCYTES # (AUTO) 0.6 X10^3/uL (1.3-2.9); MEAN CORPUSCULAR HEMOGLOBIN 31.1 pg (27.0-34.0); MEAN CORPUSCULAR HGB CONC 33.1 g/dL (33.0-35.0); MEAN CORPUSCULAR VOLUME 93.8 fL (80.0-100.0); MEAN PLATELET VOLUME 8.2 fL (7.4-11.0); MONOCYTES # (AUTO) 0.3 x10^3/uL (0.3-0.8); MONOCYTES % (AUTO) 4.2 % (0.0-13.0); NEUTROPHILS # (AUTO) 7.2 x10^3/uL (2.2-4.8); PLATELET COUNT 88 X10^3/uL (150.0-450.0); RED BLOOD COUNT 2.71 X10^6/uL (3.5-5.4); RED CELL DISTRIBUTION WIDTH 18.5 % (11.6-16.5); WHITE BLOOD COUNT 8.2 X10^3/uL (3.6-10.0)
[2023-12-25 05:36] LABS: ALANINE AMINOTRANSFERASE 28 Units/L (12-78); ALBUMIN 2.7 g/dL (3.4-5.0); ALKALINE PHOSPHATASE 48 Units/L (46-116); ASPARTATE AMINO TRANSFERASE 12 Units/L (15-37); BLOOD UREA NITROGEN 33 mg/dL (7-18); CALCIUM 8.5 mg/dL (8.5-10.1); CARBON DIOXIDE 21.2 mmol/L (21-32); CHLORIDE 111 mmol/L (98-107); COR CA(FOR HYPOALB) 9.5 mg/dL (8.5-10.1); COR NA(FOR HYPERGLY) 143 mmol/L (136-145); CREATININE 0.84 mg/dL (0.55-1.02); GLUCOSE 160 mg/dL (65-99); SODIUM 142 mmol/L (136-145); TOTAL PROTEIN 5.2 g/dL (6.4-8.2); eGFR NON BLACK RACES > 60 (>60)
[2023-12-25] MEDS: MICRO K EXTEN CAP 10 MEQ PO SCH (08:43)
[2023-12-25] MEDS: DRUG FILTER EXTENSION SET ONE (09:18)
[2023-12-25] MEDS: LASIX IVP ONE (10:55)
[2023-12-25 16:02] VITALS: RESP 20
--- NOTE | 2023-12-25 20:17 | RAD ---
EXAM: CHEST X-RAY HISTORY: Rule out pneumonia. TECHNIQUE: AP chest x-ray. COMPARISON: CXR dated December 24, 2023 at 9:32 AM. FINDINGS: There is a right anterior chest wall chest port in situ with the distal tip in the distal SVC (adequa te position). There is aortic atherosclerosis. The heart size and mediastinum are otherwise within n ormal limits. There is asymmetrical prominence of the right lower lobe bronchopulmonary markings (with minimal inte rval improvement compared with the previous exam), in keeping with improving bronchopneumonia. Inter kin resolution of the previously seen mild left lower lobe bronchopulmonary infiltrate. The lung coronado and costophrenic angles are otherwise clear. There is no pleural effusion, or pneumo thorax seen. The visualized bony structures are within normal limits. IMPRESSION: 1. Asymmetrical prominence of the right lower lobe bronchopulmonary markings (with minimal interval improvement compared with the previous exam), in keeping with improving bronchopneumonia. 2. Interval resolution of the previously seen mild left lower lobe bronchopulmonary infiltrate. 3. Recommend clinical correlation and appropriate follow-up evaluation to complete clearance. THIS IS AN ELECTRONICALLY VERIFIED FINAL REPORT 12/25/2023 8:14 PM - Electronically signed by Leeann Roe
[2023-12-26 04:50] LABS: BASOPHILS % (AUTO) 0.3 % (0.2-1.0); EOSINOPHILS % (AUTO) 0.6 % (0.9-2.9); HEMATOCRIT 26.2 % (36.0-47.0); HEMOGLOBIN 8.5 g/dL (12.0-16.0); LYMPHOCYTES # (AUTO) 0.7 X10^3/uL (1.3-2.9); LYMPHOCYTES % (AUTO) 9.1 % (21.0-51.0); MEAN CORPUSCULAR HEMOGLOBIN 30.7 pg (27.0-34.0); MEAN CORPUSCULAR HGB CONC 32.4 g/dL (33.0-35.0); MEAN CORPUSCULAR VOLUME 94.6 fL (80.0-100.0); MEAN PLATELET VOLUME 8.5 fL (7.4-11.0); MONOCYTES # (AUTO) 0.3 x10^3/uL (0.3-0.8); MONOCYTES % (AUTO) 4.2 % (0.0-13.0); NEUTROPHILS # (AUTO) 6.8 x10^3/uL (2.2-4.8); NEUTROPHILS % (AUTO) 85.8 % (42.0-75.0); PLATELET COUNT 103 X10^3/uL (150.0-450.0); RED BLOOD COUNT 2.77 X10^6/uL (3.5-5.4); RED CELL DISTRIBUTION WIDTH 18.2 % (11.6-16.5); WHITE BLOOD COUNT 7.9 X10^3/uL (3.6-10.0)
[2023-12-26 05:05] LABS: ALANINE AMINOTRANSFERASE 33 Units/L (12-78); ALBUMIN 2.8 g/dL (3.4-5.0); ALKALINE PHOSPHATASE 55 Units/L (46-116); ASPARTATE AMINO TRANSFERASE 14 Units/L (15-37); BLOOD UREA NITROGEN 44 mg/dL (7-18); CALCIUM 8.6 mg/dL (8.5-10.1); CARBON DIOXIDE 22.7 mmol/L (21-32); CHLORIDE 108 mmol/L (98-107); COR CA(FOR HYPOALB) 9.6 mg/dL (8.5-10.1); COR NA(FOR HYPERGLY) 141 mmol/L (136-145); CREATININE 1.03 mg/dL (0.55-1.02); GLUCOSE 169 mg/dL (65-99); POTASSIUM 3.8 mmol/L (3.5-5.1); SODIUM 139 mmol/L (136-145); TOTAL PROTEIN 5.3 g/dL (6.4-8.2); eGFR NON BLACK RACES 55 (>60)
[2023-12-26] MEDS ORDERED: CONSULT PHARMACY - POTASSIUM & MAGNESIUM XX SCH (06:00)
[2023-12-26 09:39] VITALS: O2SAT 97
[2023-12-26] MEDS ORDERED: K-DUR TAB 20 MEQ PO SCH (11:00)
[2023-12-26 12:06] VITALS: BP 158/82; PULSE 102; TEMP 98.3
== END 2023-12-26 14:00 | disposition home health service (06) ==
LOC: MED/SURG
PROVIDERS: ADMIT Internal Medicine; ATTEND Internal Medicine
DX: R53.81 Other malaise; K21.9 Gastro-esophageal reflux disease without esophagitis; R06.02 Shortness of breath; R26.89 Other abnormalities of gait and mobility; E88.09 Other disorders of plasma-protein metabolism, not elsewhere classified; N17.8 Other acute kidney failure; M51.36 Other intervertebral disc degeneration, lumbar region; I10 Essential (primary) hypertension; J90 Pleural effusion, not elsewhere classified; R60.0 Localized edema; R53.1 Weakness; I48.20 Chronic atrial fibrillation, unspecified; E83.42 Hypomagnesemia; Z79.01 Long term (current) use of anticoagulants; R05.9 Cough, unspecified; N30.00 Acute cystitis without hematuria; E86.0 Dehydration